=== PATIENT | female | born 1985 | race Caucasian/White ===

== ENCOUNTER 2020-06-28 15:19 | Outpatient (REF) | payer MEDICAID, SELFPAY | END 2020-06-28 15:20 | disposition home or self-care (01) | LOC: HO.LAB 15:19 | PROVIDERS: PCP Student in an Organized Health Care Education/Training Program; Visit Provider Internal Medicine | DX: Z20.828 Contact with and (suspected) exposure to other viral communicable diseases (principal) | CPT/HCPCS: 87635 ==

== ENCOUNTER 2020-07-25 13:12 | Outpatient (REF) | payer MEDICAID, SELFPAY ==
[2020-07-25 15:52] LABS: White Blood Count 7.5 X10*3/uL (4.8-10.8)
[2020-07-25 15:53] LABS: Hemoglobin 10.4 g/dl (12.0-16.0); Mean Corpuscular HGB Conc 28.9 g/dl (31.0-35.0); Mean Corpuscular Volume 76.1 fL (80-98); Mean Platelet Volume 11.7 fL (9.4-12.3); Platelet Count 269 X10*3/uL (160-400); Red Blood Count 4.73 X10*6/uL (4.20-5.50); Red Cell Distribution Width 19.8 % (11.0-16.0)
[2020-07-25 16:06] LABS: PLT ABN DIST 1
[2020-07-25 16:25] LABS: HCG Quantitative < 2 mIU/mL
[2020-07-25 16:43] LABS: Thyroid Stimulating Hormone 0.55 mIU/mL (0.32-4.0)
[2020-07-26 09:20] LABS: CT PCR NOT DETECTED (Not Detect.); NG PCR NOT DETECTED (Not Detect.)
[2020-07-28 03:31] LABS: HPV mRNA E6/E7 rflx Not Detected (Not Detected)
== END 2020-07-25 13:13 | disposition home or self-care (01) ==
LOC: HO.LAB 13:12
PROVIDERS: PCP Student in an Organized Health Care Education/Training Program; Referring Provider Student in an Organized Health Care Education/Training Program; Visit Provider Obstetrics & Gynecology
DX: R10.2 Pelvic and perineal pain (principal); N92.0 Excessive and frequent menstruation with regular cycle
CPT/HCPCS: 36415; 81025; 84443; 84702; 85027; 87491; 87591; 87624; 87625; 88142; 99212

== ENCOUNTER 2020-09-13 14:32 | Outpatient (REF) | payer MEDICAID, SELFPAY | END 2020-09-13 14:33 | disposition home or self-care (01) | LOC: HO.LAB 14:32 | PROVIDERS: Visit Provider Internal Medicine | DX: Z20.828 Contact with and (suspected) exposure to other viral communicable diseases (principal) | CPT/HCPCS: C9803; U0003 ==

== ENCOUNTER 2020-09-26 10:14 | Outpatient (REF) | payer MEDICAID, SELFPAY | END 2020-09-26 10:15 | disposition home or self-care (01) | LOC: HO.LAB 10:14 | PROVIDERS: PCP Student in an Organized Health Care Education/Training Program; Visit Provider Obstetrics & Gynecology | DX: N92.0 Excessive and frequent menstruation with regular cycle (principal) | CPT/HCPCS: 58100; 88305 ==

== ENCOUNTER → 2020-10-10 11:41 | Outpatient (BNVA) | payer MEDICAID, SELFPAY | PROVIDERS: PCP Student in an Organized Health Care Education/Training Program; Visit Provider Obstetrics & Gynecology ==

== ENCOUNTER → 2020-11-28 08:07 | Outpatient (BNV) | payer MEDICAID, SELFPAY | PROVIDERS: PCP Student in an Organized Health Care Education/Training Program; Referring Provider Emergency Medicine; Visit Provider Internal Medicine | DX: D64.9 Anemia, unspecified (principal) | CPT/HCPCS: 99203; 99213; 99214 ==

== ENCOUNTER 2020-12-07 08:02 | Outpatient (REF) | payer MEDICAID, SELFPAY | END 2020-12-07 08:03 | disposition home or self-care (01) | LOC: HO.MDS 08:02 | PROVIDERS: PCP Student in an Organized Health Care Education/Training Program; Visit Provider Internal Medicine | DX: D50.9 Iron deficiency anemia, unspecified (principal) | CPT/HCPCS: 96365; 96366; J1200; J1750; Q0163 ==

== ENCOUNTER 2021-01-17 08:29 | Outpatient (REF) | payer MEDICAID, SELFPAY ==
--- NOTE | ~2021-01-17 | US_ITS ---
EXAMINATION: US RETROPERITONEAL LIMITED (RENAL ONLY) CLINICAL INFORMATION: Abdominal pain. History of kidney stone. COMPARISON: CT abdomen and pelvis 04/13/2019. Renal ultrasound 06/23/2018. Ultrasound abdomen complete 10/24/2016. TECHNIQUE: Real-time imaging of the kidneys. FINDINGS: RIGHT KIDNEY: 11.0 x 4.1 x 4.1 cm (SAG x AP x TRV). The kidney is normal in size, contour, and echogenicity. Renal cortical thickness is normal. No calculi or focal parenchymal lesions. No hydronephrosis. There may be an extrarenal pelvis. LEFT KIDNEY: 11.9 x 4.8 x 4.8 cm (SAG x AP x TRV). The kidney is normal in size, contour, and echogenicity. Renal cortical thickness is normal. No calculi or focal parenchymal lesions. No hydronephrosis. US/US renal BI IMPRESSION: No stone seen.
== END 2021-01-17 08:30 | disposition home or self-care (01) ==
LOC: HO.US 08:29
PROVIDERS: Visit Provider Internal Medicine
DX: R10.9 Unspecified abdominal pain (principal)
CPT/HCPCS: 76775

== ENCOUNTER 2021-02-04 08:59 | Emergency (ER) | payer MEDICAID, SELFPAY ==
--- NOTE | ~2021-02-04 | US_ITS ---
EXAMINATION: US ABDOMEN COMPLETE CLINICAL INFORMATION: Right flank pain. Rule out kidney stone or gallstone. COMPARISON: Previous renal ultrasound, most recent December [address] of the abdomen and pelvis March 2019. TECHNIQUE: Real-time imaging of the abdominal viscera. FINDINGS: PANCREAS: Normal. ABDOMINAL AORTA: The proximal, mid, and distal segments are normal in caliber. INFERIOR VENA CAVA: Visualized portions are normal. LIVER: Normal. The liver is normal in size. The liver contour is normal. Parenchymal echogenicity is normal. No focal hepatic lesion. There is no intrahepatic biliary duct dilatation seen. GALLBLADDER: Normal. The gallbladder is physiologically distended without evidence of stones, sludge, polyps, wall thickening or pericholecystic fluid. COMMON BILE DUCT: Normal in caliber measuring 0.3 cm in diameter. RIGHT KIDNEY: Normal. No hydronephrosis. No renal calculi or focal parenchymal lesions. The kidney measures 10.4 cm in maximum dimension. There is no ascites. US/US abdomen complete IMPRESSION: Normal right upper quadrant ultrasound.
--- NOTE | 2021-02-04 09:26 | ED.ABDPAIN ---
HPI - Abdominal Pain General Chief Complaint: Abdominal Pain Stated Complaint: abd pain Time Seen by Provider: 02/04/21 09:25 Source: patient Mode of arrival: ambulatory Limitations: no limitations History of Present Illness HPI narrative: 36-year-old female came in for evaluation of abdominal pain. Pain started this morning when she woke up from sleep, pain is localized to right upper quadrant area/epigastric area, radiates to the back and radiate down to upper right thigh, pain described as constant, dull aching pain severe 7/10, associated with nausea but no vomiting or fever. Nothing makes the pain worse or better, patient need seafood last night she do not think it is because the food. Never had this pain in the past, patient never had abdominal surgeries, last bowel movement was yesterday and was normal. No dysuria or urinary frequency, no fever or chills. Related Data Home Medications Medication Instructions Recorded Confirmed acetaminophen 1 tab PO Q8H PRN 11/28/20 11/28/20 albuterol sulfate [ProAir HFA] 2 puff PO Q4-6H PRN 11/28/20 11/28/20 [id number]-gkyeexlwyaztf-mgrx 1 cap PO NEEDED PRN 11/28/20 11/28/20 Previous Rx's Medication Instructions Recorded meclizine 25 mg PO TID PRN #30 tab 12/14/20 Allergies Allergy/AdvReac Type Severity Reaction Status Date / Time No Known Allergies Allergy Verified 11/28/20 08:27 Review of Systems Review of Systems All other systems are reviewed and are negative Constitutional: Reports as per HPI and Reports no additional constitutional complaints Eyes: Reports as per HPI and Reports no additional eye complaints Reports system reviewed and no additional complaints, except as documented Cardiovascular: Reports as per HPI and Reports no additional cardiovascular complaints Respiratory: Reports as per HPI and Reports no additional respiratory complaints Gastrointestinal: Reports as per HPI and Reports no additional gastrointestinal complaints Genitourinary: Reports no additional female genitourinary complaints Musculoskeletal: Reports no additional musculoskeletal complaints Skin/Breast: Reports system reviewed and no additional complaints, except as docu Psychiatric: Reports no additional psychiatric complaints Endocrine: Reports no additional endocrine complaints Hematologic/Lymphatic: Reports no additional hematologic/lymphatic complaints Allergic/Immunologic: Reports no additional allergic/immunologic complaints Reports system reviewed and no additional complaints, except as documented and Reports Abnormal speech present Physical Exam Vital Signs: Vital Signs: Last Vital Signs Temp 98.5 F 02/04/21 09:28 Pulse 65 02/04/21 09:28 Resp 18 02/04/21 09:28 BP 115/72 02/04/21 09:28 Pulse Ox 97 02/04/21 09:28 Body Mass Index 28.9 Vital signs have been reviewed as appeared to be correct. Blood pressure normal. Heart rate normal. Respiration rate normal. Temperature normal. Oxygen saturation normal. Appearance: Alert. Oriented X3. No acute distress. Head: Normal external exam. Normocephalic. Atraumatic. No Aburto signs noted. No raccoon eyes noted Eyes: PERRLA. EOMI. Conjunctiva and sclera normal. Eyelids normal. ENT: TM's Normal. Pharynx normal. Uvula midline. Moist mucous membranes. No trismus noted. No drooling noted. No muffled voice noted. Neck: Normal inspection. Neck supple. FROM. No adenopathy. Thyroid Normal. No meningeal signs. No neck mass noted. CVS: Normal heart rate and rhythm. Heart sound normal. No murmurs noted. Pulses normal throughout. Respiratory: No respiratory distress. Painless inspiration. Breath sounds normal. No wheezes/rales/rhonchi noted. Chest nontender. No accessory muscle usage noted or decreased air movement noted. Abdomen: Soft, right upper quadrant tenderness, epigastric tenderness, no rebound tenderness, no guarding.. Bowel sounds normal in all 4 quadrants. No distention noted. No organomegaly noted. No visible injury noted. Back: Right CVA tenderness. Full range of motion noted. Skin: Skin warm and dry. Normal skin color. Normal skin turgor. No rashes/lesions/lacerations noted. Extremities: No lower extremity edema. Extremities exhibit normal range of motion. Extremities nontender. Neuro: Oriented X 3. No motor deficit. No sensory deficit. Reflexes normal. Course Course Course Narrative: Assessment and plan. Right upper abdominal pain radiates down to the right flank area and radiates down to the right upper thigh. Patient feels better pain is further, patient has no nausea or vomiting now, LFTs baseline elevated to days is more elevated, as discussed with the patient will center to a litigation claim representative for further outpatient evaluation. Patient was instructed to return to the emergency department of pain is getting worse or developing any other symptoms, early appendicitis was discussed with the patient however I felt it extremely unlikely to be what is causing patient's symptoms. MDM - Abdominal Pain Lab Data Attestation: I reviewed the patient's lab results. Result diagrams: 02/04/21 09:43 02/04/21 09:43 Labs: Lab Results 02/04/21 02/04/21 02/04/21 Range/Units 09:43 09:43 09:43 WBC 6.2 (4.8-10.8) X10*3/uL RBC 5.05 (4.20-5.50) X10*6/uL Hgb 13.1 (12.0-16.0) g/dl Hct 43.0 (37-47) % MCV 85.1 (80-98) fL MCH 25.9 L (27.0-33.0) pg MCHC 30.5 L (31.0-35.0) g/dl RDW 18.5 H (11.0-16.0) % Plt Count 207 (160-400) X10*3/uL MPV 10.0 (9.4-12.3) fL Immature Gran % (Auto) 0.3 (0.0-0.4) % Neut % (Auto) 63.2 (45-73) % Lymph % (Auto) 25.2 (20-40) % Rabun % (Auto) 9.6 (2-11) % Eos % (Auto) 1.1 (0-4) % Baso % (Auto) 0.6 (0-2) % Lymph # (Auto) 1.6 (1.2-4.9) X10*3/uL Rabun # (Auto) 0.6 (0.1-1.2) X10*3/uL Eos # (Auto) 0.1 (0.0-0.4) X10*3/uL Baso # (Auto) 0.0 (0.0-0.2) X10*3/uL Abs Immat Gran (auto) 0.02 (0.00-0.03) X10*3/uL Absolute Neuts (auto) 3.9 (2.0-8.3) X10*3/uL Absolute Nucleated RBC 0.000 (0.0-0.012) X10*3/uL Nucleated RBC % (auto) 0.0 (0.0-0.2) /100WBC Sodium 138 (135-145) mmol/L Potassium 3.9 (3.3-5.1) mmol/L Chloride 102 (96-108) mmol/L Carbon Dioxide 29 (22-29) mmol/L Anion Gap 11 L (12-20) BUN 10 (9-16) mg/dL Creatinine 0.73 (0.5-1.4) mg/dL Estim Creat Clear Calc 98.8 Estimated GFR > 60 Random Glucose 94 (60-115) mg/dL Calcium 8.9 (8.4-10.2) mg/dL Total Bilirubin 0.4 (0.0-1.0) mg/dL Direct Bilirubin 0.2 (0.0-0.5) mg/dL AST 126 H (5-31) U/L ALT 256 H (0-31) U/L Alkaline Phosphatase 90 (39-117) U/L Total Protein 7.2 (6.5-8.0) g/dL Albumin 4.0 (3.5-5.0) g/dL Lipase 22 (8-78) U/L Urine Color YELLOW Urine Appearance CLEAR Urine pH 6.5 (5.0-8.0) Ur Specific Sterling 1.020 (1.005-1.025) Urine Protein NEG (NEG-TRACE) MG/DL Urine Glucose (UA) NEG (NEG) MG/DL Urine Ketones NEG (NEG) MG/DL Urine Blood NEG (NEG) Urine Nitrite NEG (NEG) Ur Leukocyte Esterase NEG (NEG) Urine Test (NEGATIVE) 02/04/21 Range/Units 09:43 WBC (4.8-10.8) X10*3/uL RBC (4.20-5.50) X10*6/uL Hgb (12.0-16.0) g/dl Hct (37-47) % MCV (80-98) fL MCH (27.0-33.0) pg MCHC (31.0-35.0) g/dl RDW (11.0-16.0) % Plt Count (160-400) X10*3/uL MPV (9.4-12.3) fL Immature Gran % (Auto) (0.0-0.4) % Neut % (Auto) (45-73) % Lymph % (Auto) (20-40) % Rabun % (Auto) (2-11) % Eos % (Auto) (0-4) % Baso % (Auto) (0-2) % Lymph # (Auto) (1.2-4.9) X10*3/uL Rabun # (Auto) (0.1-1.2) X10*3/uL Eos # (Auto) (0.0-0.4) X10*3/uL Baso # (Auto) (0.0-0.2) X10*3/uL Abs Immat Gran (auto) (0.00-0.03) X10*3/uL Absolute Neuts (auto) (2.0-8.3) X10*3/uL Absolute Nucleated RBC (0.0-0.012) X10*3/uL Nucleated RBC % (auto) (0.0-0.2) /100WBC Sodium (135-145) mmol/L Potassium (3.3-5.1) mmol/L Chloride (96-108) mmol/L Carbon Dioxide (22-29) mmol/L Anion Gap (12-20) BUN (9-16) mg/dL Creatinine (0.5-1.4) mg/dL Estim Creat Clear Calc Estimated GFR Random Glucose (60-115) mg/dL Calcium (8.4-10.2) mg/dL Total Bilirubin (0.0-1.0) mg/dL Direct Bilirubin (0.0-0.5) mg/dL AST (5-31) U/L ALT (0-31) U/L Alkaline Phosphatase (39-117) U/L Total Protein (6.5-8.0) g/dL Albumin (3.5-5.0) g/dL Lipase (8-78) U/L Urine Color Urine Appearance Urine pH (5.0-8.0) Ur Specific Sterling (1.005-1.025) Urine Protein (NEG-TRACE) MG/DL Urine Glucose (UA) (NEG) MG/DL Urine Ketones (NEG) MG/DL Urine Blood (NEG) Urine Nitrite (NEG) Ur Leukocyte Esterase (NEG) Urine Test NEGATIVE (NEGATIVE) Imaging Data US - abdomen: Radiologist's impression: Normal right upper quadrant ultrasound. Discharge Plan Discharge Clinical Impression: Elevated liver function tests Abdominal pain Qualifiers: Abdominal location: right upper quadrant Qualified Code(s): R10.11 - Right upper quadrant pain Patient Disposition: Home, Self-Care Instructions: Abdominal Pain (ED) Prescriptions: No Action wxfudvxugo-zsrgjtgldzvfw-sjjm 50-325-40 mg capsule 1 cap PO NEEDED PRN (Reason: Headache) RF: 0 acetaminophen 500 mg tablet 1 tab PO Q8H PRN (Reason: Pain) RF: 0 albuterol sulfate [ProAir HFA] 90 mcg/actuation HFA aerosol inhaler 2 puff PO Q4-6H PRN (Reason: Shortness Of Breath Or Wheezing) RF: 0 meclizine 25 mg Tablet 25 mg PO TID PRN (Reason: Dizziness Or Vertigo) Qty: 30 RF: 3 Referrals: Doris Stacy MD [Physician] - 2 days Jo Higuera MD [Primary Care Provider] - 2 days [facility] Past Medical History Medical History Anemia Asthma Migraines Surgical History History of carpal tunnel surgery of right wrist History of tubal ligation Family History Family History Unknown No problems noted. Mother HTN (hypertension) Maternal Aunt Diabetes Mother Murmur Asthma Migraines Social History Social History Alcohol intake: current Alcohol intake frequency: holidays/special occasions only Smoking Status: Never smoker Use of substances other than those prescribed or required for medical reasons: No Advance Directives: No Advance Directives Information Provided: No Sexual orientation: Straight/Heterosexual Gender identity: female
[2021-02-04 09:28] VITALS: BP 115/72; PULSE 65; RESP 18; TEMP 36.9; O2SAT 97; BMI 28.9
[2021-02-04] MEDS: 0.9 % Sodium Chloride 1,000 ML 999 ML IVCONT (09:43)
[2021-02-04 09:52] LABS: MANUAL DIFF FLAG NO
[2021-02-04 09:56] LABS: Basophils Percent Auto 0.6 % (0-2); Eosinophils Absolute Auto 0.1 X10*3/uL (0.0-0.4); Eosinophils Percent Auto 1.1 % (0-4); Hemoglobin 13.1 g/dl (12.0-16.0); Imm Gran Abs Auto 0.02 X10*3/uL (0.00-0.03); Imm Gran Pct Auto 0.3 % (0.0-0.4); Lymphocytes Absolute Auto 1.6 X10*3/uL (1.2-4.9); Lymphocytes Percent Auto 25.2 % (20-40); Mean Corpuscular HGB Conc 30.5 g/dl (31.0-35.0); Mean Corpuscular Hemoglobin 25.9 pg (27.0-33.0); Mean Corpuscular Volume 85.1 fL (80-98); Monocytes Absolute Auto 0.6 X10*3/uL (0.1-1.2); Monocytes Percent Auto 9.6 % (2-11); Neutrophils Absolute Auto 3.9 X10*3/uL (2.0-8.3); Neutrophils Percent Auto 63.2 % (45-73); Platelet Count 207 X10*3/uL (160-400); Red Blood Count 5.05 X10*6/uL (4.20-5.50); Red Cell Distribution Width 18.5 % (11.0-16.0); White Blood Count 6.2 X10*3/uL (4.8-10.8)
[2021-02-04 10:00] LABS: Glucose Urine UA NEG (NEG); Leukocyte Esterase Urine NEG (NEG); Nitrite Urine NEG (NEG); PH 6.5 (5.0-8.0); Urine Blood NEG (NEG); Urine Ketones NEG (NEG); Urine Protein NEG (NEG-TRACE)
[2021-02-04 10:02] LABS: Appearance Urine CLEAR; Color Urine YELLOW
[2021-02-04 10:07] LABS: UPreg QC Valid YES; Urine Pregnancy NEGATIVE (NEGATIVE)
[2021-02-04 10:38] LABS: Alanine Aminotransferase 256 U/L (0-31); Alkaline Phosphatase 90 U/L (39-117); Anion Gap 11 (12-20); Aspartate Amino Transferase 126 U/L (5-31); Bilirubin Direct 0.2 mg/dL (0.0-0.5); Bilirubin Total 0.4 mg/dL (0.0-1.0); Blood Urea Nitrogen 10 mg/dL (9-16); Calcium 8.9 mg/dL (8.4-10.2); Carbon Dioxide 29 mmol/L (22-29); Chloride 102 mmol/L (96-108); Creatinine Clr Calc Pharmacy 98.8; Estimated Glomerular Filt Rate > 60; Glucose Random 94 mg/dL (60-115); Lipase 22 U/L (8-78); Potassium 3.9 mmol/L (3.3-5.1); Sodium 138 mmol/L (135-145); Total Protein 7.2 g/dL (6.5-8.0)
== END 2021-02-04 13:11 | disposition home or self-care (01) ==
PROVIDERS: Emergency Provider Emergency Medicine; PCP Student in an Organized Health Care Education/Training Program
DX: R10.11 Right upper quadrant pain (principal); R79.89 Other specified abnormal findings of blood chemistry; I10 Essential (primary) hypertension; Z79.899 Other long term (current) drug therapy
CPT/HCPCS: 36415; 76700; 80048; 80076; 81003; 81025; 83690; 85025; 99284

== ENCOUNTER 2021-04-18 16:11 | Emergency (ER) | payer MEDICAID, SELFPAY ==
--- NOTE | 2021-04-18 | ECG_ITS ---
Test Reason : CHEST PAIN Blood Pressure : / mmHG Vent. Rate : 069 BPM Atrial Rate : 069 BPM P-R Int : 122 ms QRS Dur : 086 ms QT Int : 414 ms P-R-T Axes : 005 077 033 degrees QTc Int : 443 ms Normal sinus rhythm Normal ECG When compared with ECG of 21-JUL-2012 09:30, No significant change was found Referred By: Generic ED Physician Electronically Signed By:ZOHAIB RUTH
[2021-04-18 16:20] VITALS: BP 119/73; PULSE 66; RESP 18; TEMP 36.6; O2SAT 99; BMI 30.3
[2021-04-18 16:49] LABS: MANUAL DIFF FLAG NO
[2021-04-18 16:51] LABS: Basophils Absolute Auto 0.1 X10*3/uL (0.0-0.2); Basophils Percent Auto 0.7 % (0-2); Eosinophils Absolute Auto 0.1 X10*3/uL (0.0-0.4); Eosinophils Percent Auto 1.3 % (0-4); Hematocrit 41.3 % (37-47); Hemoglobin 13.4 g/dl (12.0-16.0); Imm Gran Abs Auto 0.02 X10*3/uL (0.00-0.03); Imm Gran Pct Auto 0.3 % (0.0-0.4); Lymphocytes Absolute Auto 1.8 X10*3/uL (1.2-4.9); Lymphocytes Percent Auto 26.6 % (20-40); Mean Corpuscular HGB Conc 32.4 g/dl (31.0-35.0); Mean Corpuscular Hemoglobin 28.6 pg (27.0-33.0); Mean Corpuscular Volume 88.1 fL (80-98); Mean Platelet Volume 10.2 fL (9.4-12.3); Monocytes Absolute Auto 0.6 X10*3/uL (0.1-1.2); Monocytes Percent Auto 8.3 % (2-11); Neutrophils Absolute Auto 4.3 X10*3/uL (2.0-8.3); Neutrophils Percent Auto 62.8 % (45-73); Platelet Count 179 X10*3/uL (160-400); Red Blood Count 4.69 X10*6/uL (4.20-5.50); Red Cell Distribution Width 13.2 % (11.0-16.0); White Blood Count 6.9 X10*3/uL (4.8-10.8)
[2021-04-18 17:12] LABS: Anion Gap 12 (12-20); Blood Urea Nitrogen 12 mg/dL (9-16); Calcium 9.4 mg/dL (8.4-10.2); Carbon Dioxide 28 mmol/L (22-29); Chloride 105 mmol/L (96-108); Creatinine Clr Calc Pharmacy 87.9; Estimated Glomerular Filt Rate > 60; Glucose Random 96 mg/dL (60-115); Potassium 3.9 mmol/L (3.3-5.1); Sodium 141 mmol/L (135-145)
[2021-04-18 17:19] LABS: Troponin-I High Sensitivity < 3.5 ng/L (<3.5-17.0)
--- NOTE | 2021-04-18 18:28 | ED_ITS ---
HPI - General Adult General Chief complaint: General Medical Stated complaint: chest pain sob Time Seen by Provider: 04/18/21 18:28 Source: patient Mode of arrival: ambulatory Limitations: no limitations History of Present Illness HPI narrative: Patient with no significant past medical history except for mild asthma been complaining of left chest pain for last 2 days which is localized mostly on the 2nd costal cartilage area which increases on movement of the left arm and palpation feels sharp pressure no shortness of breath no cough no fever no chills no injury no use of any cocaine no history of sudden cardiac in young age in the family Related Data Home Medications Medication Instructions Recorded Confirmed acetaminophen 500 mg tablet 1 tab PO Q8H PRN 11/28/20 11/28/20 albuterol sulfate 90 mcg/actuation 2 puff PO Q4-6H PRN 11/28/20 11/28/20 aerosol inhaler (ProAir HFA) equsgyniug-cnsaaabekfcra-nsvnmhmi 1 cap PO NEEDED PRN 11/28/20 11/28/20 50 mg-325 mg-40 mg capsule Previous Rx's Medication Instructions Recorded meclizine 25 mg tablet 25 mg PO TID PRN #30 tab 12/14/20 ibuprofen 600 mg tablet 600 mg PO Q6H PRN #20 tab 04/18/21 Allergies Allergy/AdvReac Type Severity Reaction Status Date / Time No Known Allergies Allergy Verified 11/28/20 08:27 Review of Systems Review of Systems: Constitutional : No Weight loss, No Fever, No Chills ENT/Mouth : No sore throat, No Rhinorrhea Eyes: No Eye Pain, No Swelling Cardiovascular : +Chest Pain, no palpitations Respiratory : No Cough, No Sputum, no shortness of breath Gastrointestinal : no Nausea, No Vomiting, No Diarrhea, No abdominal Pain, no black stools Genitourinary : No Dysuria, No Urinary Frequency Musculoskeletal : No joint pain, No Myalgias, No Joint Swelling Skin : No Skin Lesions, No rash Neuro : No Weakness, No Numbness, No Dizziness, No Headache Psych : No Anxiety/Panic, No Depression Heme/Lymph: No Bruising, No Lymphadenopathy Endocrine : No Polyuria, No Polydipsia All other systems reviewed and are negative [facility] Past Medical History Medical History Anemia Asthma Migraines Surgical History History of carpal tunnel surgery of right wrist History of tubal ligation Family History Family History Unknown No problems noted. Mother HTN (hypertension) Maternal Aunt Diabetes Mother Murmur Asthma Migraines Social History Social History Alcohol intake: current Alcohol intake frequency: holidays/special occasions only Advance Directives: No Advance Directives Information Provided: No Patient : No Sexual orientation: Straight/Heterosexual Gender identity: female Physical Exam Vital Signs: Vital Signs: Last Vital Signs Temp 98 F 04/18/21 16:20 Pulse 59 04/18/21 18:31 Resp 18 04/18/21 18:31 BP 114/83 04/18/21 18:31 Pulse Ox 99 04/18/21 18:31 Body Mass Index 30.3 Appearance: Alert. Oriented X3. No acute distress. Eyes: PERRLA, No Nystagmus ENT: Pharynx normal. Oral Mucosa moist Neck: Normal inspection. Neck supple. CVS: Normal heart rate and rhythm. Pulses normal. Tender to palpation to left 2nd intercostal space Respiratory: No respiratory distress. Equal air entry bilateral, no wheezing/rales/rhonchi Abdomen: Soft and nontender. Bowel sounds are present, no mass palpable, no CVA tenderness Skin: Skin warm and dry. Normal skin color. Normal skin turgor. Extremities: No lower extremity edema. No calf tenderness Neuro: Oriented X 3. No motor deficit. No sensory deficit.No cerebellar signs , cranial nerves II-XII intact Medical Decision Making MDM Narrative Medical decision making narrative: Patient with atypical chest pain without any significant coronary risk factors EKG normal high sensitive troponin negative will discharge patient home on ibuprofen Lab Data Result diagrams: 04/18/21 16:43 04/18/21 16:43 Labs: Lab Results 04/18/21 04/18/21 04/18/21 Range/Units 16:43 16:43 16:43 WBC 6.9 (4.8-10.8) X10*3/uL RBC 4.69 (4.20-5.50) X10*6/uL Hgb 13.4 (12.0-16.0) g/dl Hct 41.3 (37-47) % MCV 88.1 (80-98) fL MCH 28.6 (27.0-33.0) pg MCHC 32.4 (31.0-35.0) g/dl RDW 13.2 (11.0-16.0) % Plt Count 179 (160-400) X10*3/uL MPV 10.2 (9.4-12.3) fL Immature Gran % (Auto) 0.3 (0.0-0.4) % Neut % (Auto) 62.8 (45-73) % Lymph % (Auto) 26.6 (20-40) % Ida % (Auto) 8.3 (2-11) % Eos % (Auto) 1.3 (0-4) % Baso % (Auto) 0.7 (0-2) % Lymph # (Auto) 1.8 (1.2-4.9) X10*3/uL Ida # (Auto) 0.6 (0.1-1.2) X10*3/uL Eos # (Auto) 0.1 (0.0-0.4) X10*3/uL Baso # (Auto) 0.1 (0.0-0.2) X10*3/uL Abs Immat Gran (auto) 0.02 (0.00-0.03) X10*3/uL Absolute Neuts (auto) 4.3 (2.0-8.3) X10*3/uL Absolute Nucleated RBC 0.000 (0.0-0.012) X10*3/uL Nucleated RBC % (auto) 0.0 (0.0-0.2) /100WBC Sodium 141 (135-145) mmol/L Potassium 3.9 (3.3-5.1) mmol/L Chloride 105 (96-108) mmol/L Carbon Dioxide 28 (22-29) mmol/L Anion Gap 12 (12-20) BUN 12 (9-16) mg/dL Creatinine 0.84 (0.5-1.4) mg/dL Estim Creat Clear Calc 87.9 Estimated GFR > 60 Random Glucose 96 (60-115) mg/dL Calcium 9.4 (8.4-10.2) mg/dL Troponin I High Sens < 3.5 (<3.5-17.0) ng/L ECG Data Attestation: I personally reviewed and interpreted this ECG as follows: Interpretation: Normal sinus rhythm heart rate 69 beats per minute normal intervals normal axis no acute ST wave changes impression normal EKG Scores Heart Score History: -0- slightly suspicious ECG: -0- normal Age: -0- < or = 45 Risk factory: -0- no risk factors known Troponin: -0- < or = normal limit Score: 0 Risk: 1.7% Discharge Plan Discharge Clinical Impression: Acute costochondritis Patient Disposition: Home, Self-Care Instructions: Costochondritis (ED) Additional Instructions: Rest as advised Ibuprofen for pain Prescriptions: New ibuprofen 600 mg tablet 600 mg PO Q6H PRN (Reason: pain) Qty: 20 RF: 0 No Action xmuvdfelgq-fvbnqlzxnpiut-zjds 50-325-40 mg capsule 1 cap PO NEEDED PRN (Reason: Headache) RF: 0 acetaminophen 500 mg tablet 1 tab PO Q8H PRN (Reason: Pain) RF: 0 albuterol sulfate [ProAir HFA] 90 mcg/actuation HFA aerosol inhaler 2 puff PO Q4-6H PRN (Reason: Shortness Of Breath Or Wheezing) RF: 0 meclizine 25 mg Tablet 25 mg PO TID PRN (Reason: Dizziness Or Vertigo) Qty: 30 RF: 3 Interventions: ED Discharge Assessment Last Done: 04/18/21 18:49
[2021-04-18 18:31] VITALS: BP 114/83; PULSE 59; RESP 18; O2SAT 99
[2021-04-18] MEDS: Ibuprofen 600 MG TABLET PO (18:45)
== END 2021-04-18 18:49 | disposition home or self-care (01) ==
LOC: HO.ED 18:41
PROVIDERS: Emergency Provider Internal Medicine; PCP Student in an Organized Health Care Education/Training Program
DX: M94.0 Chondrocostal junction syndrome [Tietze] (principal); R07.9 Chest pain, unspecified; Z79.899 Other long term (current) drug therapy
CPT/HCPCS: 36415; 80048; 84484; 85025; 93005; 99284

== ENCOUNTER 2021-07-16 09:00 | Outpatient (RCR) | payer MEDICAID, SELFPAY | END 2021-08-08 14:00 | disposition home or self-care (01) | LOC: HO.PTCHIC 09:00 | PROVIDERS: PCP Student in an Organized Health Care Education/Training Program; Visit Provider Family Medicine | DX: M25.561 Pain in right knee (principal) | CPT/HCPCS: 97014; 97110; 97140; 97161 ==

== ENCOUNTER → 2021-07-18 11:44 | Outpatient (BNVA) | payer MEDICAID, SELFPAY | PROVIDERS: Visit Provider Obstetrics & Gynecology | DX: D21.9 Benign neoplasm of connective and other soft tissue, unspecified (principal); N92.0 Excessive and frequent menstruation with regular cycle | CPT/HCPCS: 99212 ==

== ENCOUNTER 2021-07-30 13:55 | Outpatient (REF) | payer MEDICAID, SELFPAY ==
[2021-08-08 05:11] LABS: HPV 16 RNA NOT DETECTED (NOT DETECTED); HPV mRNA E6/E7 rflx Detected (Not Detected)
== END 2021-07-30 13:56 | disposition home or self-care (01) ==
LOC: HO.LAB 13:55
PROVIDERS: Visit Provider Obstetrics & Gynecology
DX: Z01.419 Encounter for gynecological examination (general) (routine) without abnormal findings (principal)
CPT/HCPCS: 87624; 87625; 88142

== ENCOUNTER 2021-08-13 09:58 | Outpatient (REF) | payer MEDICAID, SELFPAY ==
--- NOTE | ~2021-08-13 | US_ITS ---
EXAMINATION: US PELVIS CLINICAL INFORMATION: Abnormal uterine and vaginal bleeding. COMPARISON: None TECHNIQUE: Ultrasound of the pelvis is performed using both transabdominal and transvaginal transducers along with Doppler. Transvaginal imaging is performed due to inadequate visualization transabdominally. FINDINGS: The uterus is anteverted, anteflexed measuring 8.1 cm in length, 4.2 cm in AP and 4.9 cm wide. There 2 hypoechoic areas suggestive of fibroid. The larger posterior mid body fibroid measures 2.2 x 1.6 x 1.9 cm. Previously this lesion measured 1.3 x 1.1 x 1.5 cm. The smaller anterior upper body lesion measures 1.1 x 0.9 x 0.9 cm. It was not seen previously. Endometrial thickness is 1.1 cm. There are small nabothian cysts seen in the cervix. Right ovary measures 2.9 x 1.6 x 2.7 cm and volume 6.8 mL. Previously it measured 3.0 x 1.4 x 2.3 cm. Left ovary measures 2.7 x 2.3 x 2.2 cm and volume 7.3 mL. Previously it measures 4.6 x 2.8 x 3.7 cm. US/US pelvic and transvaginal IMPRESSION: 2 uterine fibroids. The larger fibroid has slightly increased in size which lies along the posterior mid uterus. Small nabothian cysts in the cervix. Unremarkable ovaries.
== END 2021-08-13 09:59 | disposition home or self-care (01) ==
LOC: HO.HMGCX 09:58
PROVIDERS: Visit Provider Obstetrics & Gynecology
DX: D21.9 Benign neoplasm of connective and other soft tissue, unspecified (principal); N39.3 Stress incontinence (female) (male)
CPT/HCPCS: 76830; 76856

== ENCOUNTER → 2021-08-14 14:58 | Outpatient (BNVA) | payer MEDICAID, SELFPAY | PROVIDERS: Visit Provider Obstetrics & Gynecology ==

== ENCOUNTER 2021-10-09 12:01 | Outpatient (REF) | payer MEDICAID, SELFPAY ==
[2021-10-09 12:19] LABS: COVID-19 Test Positive (Negative)
== END 2021-10-09 12:02 | disposition home or self-care (01) ==
LOC: HO.LAB 12:01
PROVIDERS: Visit Provider Internal Medicine
DX: Z20.822 Contact with and (suspected) exposure to COVID-19 (principal)
CPT/HCPCS: 87635; C9803

== ENCOUNTER 2021-10-14 14:01 | Outpatient (REF) | payer MEDICAID, SELFPAY ==
[2021-10-14 14:30] LABS: Binax Internal Control QC Valid; Binax Now Covid-19 Ag Negative (Negative)
== END 2021-10-14 14:02 | disposition home or self-care (01) ==
LOC: HO.LAB 14:01
PROVIDERS: Visit Provider Internal Medicine
DX: Z20.822 Contact with and (suspected) exposure to COVID-19 (principal)
CPT/HCPCS: C9803

== ENCOUNTER → 2021-10-16 10:12 | Outpatient (BNVA) | payer MEDICAID, SELFPAY | PROVIDERS: PCP Student in an Organized Health Care Education/Training Program; Visit Provider Obstetrics & Gynecology ==

== ENCOUNTER 2021-10-21 10:51 | Outpatient (REF) | payer MEDICAID, SELFPAY | END 2021-10-21 10:52 | disposition home or self-care (01) | LOC: HO.LAB 10:51 | PROVIDERS: Visit Provider Obstetrics & Gynecology | DX: R87.610 Atypical squamous cells of undetermined significance on cytologic smear of cervix (ASC-US) (principal); R87.810 Cervical high risk human papillomavirus (HPV) DNA test positive; Z87.891 Personal history of nicotine dependence | CPT/HCPCS: 57454; 88305 ==

== ENCOUNTER 2021-10-31 10:27 | Outpatient (REF) | payer MEDICAID, SELFPAY ==
[2021-10-31 11:15] LABS: COVID-19 Test Negative (Negative)
== END 2021-10-31 10:28 | disposition home or self-care (01) ==
LOC: HO.LAB 10:27
PROVIDERS: Visit Provider Internal Medicine
DX: Z20.822 Contact with and (suspected) exposure to COVID-19 (principal)
CPT/HCPCS: 87635; C9803

== ENCOUNTER → 2021-11-04 15:43 | Outpatient (BNVA) | payer MEDICAID, SELFPAY | PROVIDERS: Visit Provider Obstetrics & Gynecology ==

== ENCOUNTER 2021-12-17 10:00 | Outpatient (RCR) | payer MEDICAID, SELFPAY | END 2021-12-17 12:52 | disposition home or self-care (01) | LOC: HO.PTCHIC 10:00 | PROVIDERS: PCP Student in an Organized Health Care Education/Training Program; Visit Provider Orthopaedic Surgery | DX: Z98.890 Other specified postprocedural states (principal) | CPT/HCPCS: 97035; 97110; 97112; 97116; 97140; 97161; 97164; 97530 ==

== ENCOUNTER 2022-03-12 09:49 | Emergency (ER) | payer MEDICAID, SELFPAY ==
--- NOTE | ~2022-03-12 | US_ITS ---
EXAMINATION: US RETROPERITONEAL LIMITED (RENAL ONLY) CLINICAL INFORMATION: Right flank pain.. COMPARISON: 02/04/2021 TECHNIQUE: Real-time imaging of the kidneys. FINDINGS: RIGHT KIDNEY: 9.8 x 4.2 x 4.1 cm (SAG x AP x TRV). The kidney is normal in size, contour, and echogenicity. Renal cortical thickness is normal. No calculi or focal parenchymal lesions. No hydronephrosis. LEFT KIDNEY: 10.7 x 4.7 x 5.0 cm (SAG x AP x TRV). The kidney is normal in size, contour, and echogenicity. Renal cortical thickness is normal. No calculi or focal parenchymal lesions. No hydronephrosis. US/US retroperitoneal limited IMPRESSION: Unremarkable renal ultrasound.
[2022-03-12 10:07] VITALS: BP 123/60; PULSE 65; RESP 16; TEMP 36.7; O2SAT 99; BMI 32.9
[2022-03-12 10:20] LABS: MANUAL DIFF FLAG NO
[2022-03-12 10:22] LABS: Basophils Percent Auto 0.7 % (0-2); Eosinophils Absolute Auto 0.1 X10*3/uL (0.0-0.4); Eosinophils Percent Auto 0.9 % (0-4); Hematocrit 42.4 % (37.0-47.0); Hemoglobin 13.3 g/dl (12.0-16.0); Imm Gran Abs Auto 0.02 X10*3/uL (0.00-0.03); Imm Gran Pct Auto 0.3 % (0.0-0.4); Lymphocytes Absolute Auto 1.8 X10*3/uL (1.2-4.9); Lymphocytes Percent Auto 31.1 % (20-40); Mean Corpuscular HGB Conc 31.4 g/dl (31.0-35.0); Mean Corpuscular Hemoglobin 27.1 pg (27.0-33.0); Mean Corpuscular Volume 86.5 fL (80.0-98.0); Mean Platelet Volume 10.3 fL (9.4-12.3); Monocytes Absolute Auto 0.5 X10*3/uL (0.1-1.2); Monocytes Percent Auto 8.5 % (2-11); Neutrophils Absolute Auto 3.4 x10*3/uL (2.0-8.3); Neutrophils Percent Auto 58.5 % (45-73); Platelet Count 190 X10*3/uL (160-400); Red Cell Distribution Width 12.7 % (11.0-16.0); White Blood Count 5.9 X10*3/uL (4.8-10.8)
--- NOTE | 2022-03-12 10:27 | ED.FEMALEGU ---
HPI - Female Genitourinary General Chief complaint: Back Pain/Injury Stated complaint: Kidney Pain Sent by [facility] Time Seen by Provider: 03/12/22 10:27 Source: patient Mode of arrival: ambulatory Limitations: no limitations History of Present Illness HPI Narrative: atraumatic R flank pain no associated or GI symptoms hurts to touch lower back radiates around groin as well MD elicited complaint: other (R flank pain) Pertinent past history: other (UTI) Onset (ago): week(s) (1) Location of symptoms: flank (right) Severity: moderate Quality of pain: aching Consistency: intermittent Exacerbating factors: movement Relieving factors: none Associated symptoms: denies other symptoms Treatment prior to arrival: other (has been on macrobid since 03/06 with PCP for possible UTI) Related Data Home Medications Medication Instructions Recorded Confirmed acetaminophen 500 mg tablet 1 tab PO Q8H PRN Pain 11/28/20 02/19/22 albuterol sulfate 90 mcg/actuation 2 puff PO Q4-6H PRN Shortness Of 11/28/20 02/19/22 aerosol inhaler (ProAir HFA) Breath Or Wheezing wxzyjgpwwo-uexsndvpwipum-yshloocw 1 cap PO NEEDED PRN Headache 11/28/20 02/19/22 50 mg-325 mg-40 mg capsule simvastatin 10 mg tablet 1 tab PO QPM 05/07/21 02/19/22 ondansetron HCl 4 mg tablet 1 tab PO BID PRN nausea 02/19/22 02/19/22 Previous Rx's Medication Instructions Recorded meclizine 25 mg tablet 25 mg PO TID PRN Dizziness Or 12/14/20 Vertigo #30 tabs ibuprofen 600 mg tablet 600 mg PO Q6H PRN pain #20 tabs 04/18/21 tranexamic acid 650 mg tablet 1,300 mg PO TID 5 days #30 tabs 07/18/21 (Lysteda) levofloxacin 500 mg tablet 500 mg PO DAILY 7 days #7 tabs 10/23/21 cyclobenzaprine 10 mg tablet 10 mg PO TID PRN muscle spasm #14 03/12/22 tabs ibuprofen 600 mg tablet 600 mg PO Q6H PRN pain #30 tabs 03/12/22 lidocaine 4 % topical patch 1 patch topical DAILY PRN pain #10 03/12/22 ea Allergies Allergy/AdvReac Type Severity Reaction Status Date / Time No Known Allergies Allergy Verified 02/19/22 10:08 Review of Systems Review of Systems: Constitutional : No Fever, No Chills ENT/Mouth : No sore throat Eyes: No Eye Pain, No Swelling, No Redness Cardiovascular : No Chest Pain, No SOB Respiratory : No Cough, No Sputum, No Wheezing Gastrointestinal : no Nausea, no Vomiting, No Diarrhea, no abdominal pain Genitourinary : no Dysuria, no urinary frequency, no Hematuria, positive Flank Pain, no hesitancy Musculoskeletal : No joint pain, No Myalgias Skin : No Skin Lesions, No rash Neuro : No Weakness, No Numbness, No Headache Psych : No Anxiety/Panic, No Depression Heme/Lymph: No Bruising, No Lymphadenopathy Endocrine : No Polyuria, No Polydipsia All other systems reviewed and are negative [facility] Past Medical History Attestation statement: The following information was validated with the patient. Medical History Anemia Asthma Migraines Right knee meniscal tear Surgical History History of carpal tunnel surgery of right wrist History of knee surgery History of tubal ligation Family History Family History Unknown No problems noted. Mother HTN (hypertension) Maternal Aunt Diabetes Mother Murmur Asthma Migraines Social History Social History Household Members: Children [facility] Are you a primary home health care respiratory therapist to a significant other at home: Yes Do you presently have visiting nurse or other home services: No Alcohol intake: current Alcohol intake frequency: holidays/special occasions only Patient Tobacco Use Status: Former Tobacco user Quit Date: 2000 Tobacco use type: Cigarette Advance Directives: No Advance Directives Information Provided: No service: No Current occupational status: employed Sexual orientation: Straight/Heterosexual Gender identity: Female Physical Exam Vital Signs: Vital Signs: Last Vital Signs Temp 98.6 F 03/12/22 10:29 Pulse 54 03/12/22 12:11 Resp 18 03/12/22 12:11 BP 114/64 03/12/22 12:11 Pulse Ox 99 03/12/22 12:11 O2 Del Method 03/12/22 12:11 BMI result Body Mass Index 32.9 Appearance: Alert. Oriented X3. No acute distress. Eyes: Pupils equal, round and reactive to light. ENT: Pharynx normal. Neck: Normal inspection. Neck supple. CVS: Normal heart rate and rhythm. Pulses normal. Respiratory: No respiratory distress. Breath sounds normal. Abdomen: Soft and nontender. Back: ttp along R lower paraspinals muscles reproduces pain no CVA ttp Skin: Skin warm and dry. Normal skin color. Normal skin turgor. Extremities: No lower extremity edema. No calf ttp Neuro: Oriented X 3. No motor deficit. No sensory deficit. Course Course Course Narrative: negative US labs normal stable for DC MDM - Female Genitourinary MDM Narrative Medical decision making narrative: 37 yo female no sig PMH here with c/o atraumatic low back pain with no associated GI or symptoms - NV intact, no b/b incontinence no saddle anesthesia patient is not toxic at this time. On macrobid from 03/06. Her pain seems more MSK in nature. At this time will obtain basic labs, UA, US to assess for renal colic though seems MSK on exam. Lab Data Result diagrams: 03/12/22 10:14 03/12/22 10:14 Labs: Lab Results 03/12/22 03/12/22 03/12/22 Range/Units 10:14 10:14 11:08 WBC 5.9 (4.8-10.8) X10*3/uL RBC 4.90 (4.20-5.50) X10*6/uL Hgb 13.3 (12.0-16.0) g/dl Hct 42.4 (37.0-47.0) % MCV 86.5 (80.0-98.0) fL MCH 27.1 (27.0-33.0) pg MCHC 31.4 (31.0-35.0) g/dl RDW 12.7 (11.0-16.0) % Plt Count 190 (160-400) X10*3/uL MPV 10.3 (9.4-12.3) fL Immature Gran % (Auto) 0.3 (0.0-0.4) % Neut % (Auto) 58.5 (45-73) % Lymph % (Auto) 31.1 (20-40) % [place] % (Auto) 8.5 (2-11) % Eos % (Auto) 0.9 (0-4) % Baso % (Auto) 0.7 (0-2) % Lymph # (Auto) 1.8 (1.2-4.9) X10*3/uL [place] # (Auto) 0.5 (0.1-1.2) X10*3/uL Eos # (Auto) 0.1 (0.0-0.4) X10*3/uL Baso # (Auto) 0.0 (0.0-0.2) X10*3/uL Abs Immat Gran (auto) 0.02 (0.00-0.03) X10*3/uL Absolute Neuts (auto) 3.4 (2.0-8.3) x10*3/uL Absolute Nucleated RBC 0.000 (0.0-0.012) X10*3/uL Nucleated RBC % (auto) 0.0 (0.0-0.2) /100WBC Sodium 138 (135-145) mmol/L Potassium 4.6 (3.3-5.1) mmol/L Chloride 107 (96-108) mmol/L Carbon Dioxide 27 (22-29) mmol/L Anion Gap 9 L (12-20) BUN 11 (9-16) mg/dL Creatinine 0.76 (0.5-1.4) mg/dL Estim Creat Clear Calc 100.3 Estimated GFR > 60 Random Glucose 103 (60-115) mg/dL Calcium 8.5 D (8.4-10.2) mg/dL Total Bilirubin 0.3 (0.0-1.0) mg/dL Direct Bilirubin < 0.2 (0.0-0.5) mg/dL AST 18 D (5-31) U/L ALT 17 (0-31) U/L Alkaline Phosphatase 59 D (39-117) U/L Total Protein 6.9 (6.5-8.0) g/dL Albumin 4.0 (3.5-5.0) g/dL Lipase 40 (8-78) U/L Urine Color STRAW Urine Appearance CLEAR Urine pH 6.0 (5.0-8.0) Ur Specific [place] 1.010 (1.005-1.025) Urine Protein NEG (NEG-TRACE) MG/DL Urine Glucose (UA) NEG (NEG) MG/DL Urine Ketones NEG (NEG) MG/DL Urine Blood NEG (NEG) Urine Nitrite NEG (NEG) Ur Leukocyte Esterase NEG (NEG) Urine Test (NEGATIVE) 03/12/22 Range/Units 11:08 WBC (4.8-10.8) X10*3/uL RBC (4.20-5.50) X10*6/uL Hgb (12.0-16.0) g/dl Hct (37.0-47.0) % MCV (80.0-98.0) fL MCH (27.0-33.0) pg MCHC (31.0-35.0) g/dl RDW (11.0-16.0) % Plt Count (160-400) X10*3/uL MPV (9.4-12.3) fL Immature Gran % (Auto) (0.0-0.4) % Neut % (Auto) (45-73) % Lymph % (Auto) (20-40) % [place] % (Auto) (2-11) % Eos % (Auto) (0-4) % Baso % (Auto) (0-2) % Lymph # (Auto) (1.2-4.9) X10*3/uL [place] # (Auto) (0.1-1.2) X10*3/uL Eos # (Auto) (0.0-0.4) X10*3/uL Baso # (Auto) (0.0-0.2) X10*3/uL Abs Immat Gran (auto) (0.00-0.03) X10*3/uL Absolute Neuts (auto) (2.0-8.3) x10*3/uL Absolute Nucleated RBC (0.0-0.012) X10*3/uL Nucleated RBC % (auto) (0.0-0.2) /100WBC Sodium (135-145) mmol/L Potassium (3.3-5.1) mmol/L Chloride (96-108) mmol/L Carbon Dioxide (22-29) mmol/L Anion Gap (12-20) BUN (9-16) mg/dL Creatinine (0.5-1.4) mg/dL Estim Creat Clear Calc Estimated GFR Random Glucose (60-115) mg/dL Calcium (8.4-10.2) mg/dL Total Bilirubin (0.0-1.0) mg/dL Direct Bilirubin (0.0-0.5) mg/dL AST (5-31) U/L ALT (0-31) U/L Alkaline Phosphatase (39-117) U/L Total Protein (6.5-8.0) g/dL Albumin (3.5-5.0) g/dL Lipase (8-78) U/L Urine Color Urine Appearance Urine pH (5.0-8.0) Ur Specific [place] (1.005-1.025) Urine Protein (NEG-TRACE) MG/DL Urine Glucose (UA) (NEG) MG/DL Urine Ketones (NEG) MG/DL Urine Blood (NEG) Urine Nitrite (NEG) Ur Leukocyte Esterase (NEG) Urine Test NEGATIVE (NEGATIVE) Discharge Plan Discharge Clinical Impression: Strain of lumbar region Qualifiers: Encounter type: initial encounter Qualified Code(s): S39.012A - Strain of muscle, fascia and tendon of lower back, initial encounter Patient Disposition: Home, Self-Care Instructions: Acute Low Back Pain (ED) Additional Instructions: return to ED for any worsening symptoms or concerns finish your macrobid RIGHT KIDNEY: 9.8 x 4.2 x 4.1 cm (SAG x AP x TRV). The kidney is normal in size, contour, and echogenicity. Renal cortical thickness is normal. No calculi or focal parenchymal lesions. No hydronephrosis. LEFT KIDNEY: 10.7 x 4.7 x 5.0 cm (SAG x AP x TRV). The kidney is normal in size, contour, and echogenicity. Renal cortical thickness is normal. No calculi or focal parenchymal lesions. No hydronephrosis. US/US retroperitoneal limited IMPRESSION: Unremarkable renal ultrasound. Prescriptions: New cyclobenzaprine 10 mg tablet 10 mg PO TID PRN (Reason: muscle spasm) Qty: 14 0RF lidocaine 4 % adhesive patch,medicated 1 patch topical DAILY PRN (Reason: pain) Qty: 10 0RF Rx Instructions: may leave on for up to 12 hrs ibuprofen 600 mg tablet 600 mg PO Q6H PRN (Reason: pain) Qty: 30 0RF No Action levofloxacin 500 mg tablet 500 mg PO DAILY 7 Days Qty: 7 0RF pzcjhvdmtj-rwklhvwpsnyky-npvk 50-325-40 mg capsule 1 cap PO NEEDED PRN (Reason: Headache) acetaminophen 500 mg tablet 1 tab PO Q8H PRN (Reason: Pain) albuterol sulfate [ProAir HFA] 90 mcg/actuation HFA aerosol inhaler 2 puff PO Q4-6H PRN (Reason: Shortness Of Breath Or Wheezing) simvastatin 10 mg tablet 1 tab PO QPM ondansetron HCl 4 mg tablet 1 tab PO BID PRN (Reason: nausea) ibuprofen 600 mg tablet 600 mg PO Q6H PRN (Reason: pain) Qty: 20 0RF meclizine 25 mg Tablet 25 mg PO TID PRN (Reason: Dizziness Or Vertigo) Qty: 30 3RF tranexamic acid [Lysteda] 650 mg tablet 1,300 mg PO TID 5 Days Qty: 30 2RF Referrals: Jo Higuera MD [Primary Care Provider] - (if not better in 3 days) Stand Alone Forms: Work/School Release
[2022-03-12 10:29] VITALS: BP 121/70; PULSE 58; RESP 18; TEMP 37; O2SAT 100
[2022-03-12 10:37] LABS: Anion Gap 9 (12-20); Blood Urea Nitrogen 11 mg/dL (9-16); Calcium 8.5 mg/dL (8.4-10.2); Carbon Dioxide 27 mmol/L (22-29); Chloride 107 mmol/L (96-108); Creatinine Clr Calc Pharmacy 100.3; Estimated Glomerular Filt Rate > 60; Glucose Random 103 mg/dL (60-115); Potassium 4.6 mmol/L (3.3-5.1); Sodium 138 mmol/L (135-145)
[2022-03-12 11:09] LABS: Alanine Aminotransferase 17 U/L (0-31); Alkaline Phosphatase 59 U/L (39-117); Aspartate Amino Transferase 18 U/L (5-31); Bilirubin Direct < 0.2 mg/dL (0.0-0.5); Bilirubin Total 0.3 mg/dL (0.0-1.0); Lipase 40 U/L (8-78); Total Protein 6.9 g/dL (6.5-8.0)
[2022-03-12 11:14] LABS: Appearance Urine CLEAR; Color Urine STRAW; Glucose Urine UA NEG (NEG); Leukocyte Esterase Urine NEG (NEG); Nitrite Urine NEG (NEG); Urine Blood NEG (NEG); Urine Ketones NEG (NEG); Urine Protein NEG (NEG-TRACE)
[2022-03-12 11:16] LABS: UPreg QC Valid YES; Urine Pregnancy NEGATIVE (NEGATIVE)
[2022-03-12 12:11] VITALS: BP 114/64; PULSE 54; RESP 18; O2SAT 99
== END 2022-03-12 13:57 | disposition home or self-care (01) ==
PROVIDERS: Emergency Provider Emergency Medicine; PCP Student in an Organized Health Care Education/Training Program
DX: M54.50 Low back pain, unspecified (principal); R10.9 Unspecified abdominal pain; Z79.899 Other long term (current) drug therapy; Z87.891 Personal history of nicotine dependence
CPT/HCPCS: 36415; 76775; 80048; 80076; 81003; 81025; 83690; 85025; 99283; 99284

== ENCOUNTER → 2022-03-18 07:55 | Outpatient (BNVA) | payer MEDICAID, SELFPAY | PROVIDERS: PCP Student in an Organized Health Care Education/Training Program; Visit Provider Obstetrics & Gynecology | DX: D21.9 Benign neoplasm of connective and other soft tissue, unspecified (principal); N93.9 Abnormal uterine and vaginal bleeding, unspecified; N87.0 Mild cervical dysplasia | CPT/HCPCS: 99212 ==

== ENCOUNTER 2022-04-14 14:43 | Outpatient (REF) | payer MEDICAID, SELFPAY ==
[2022-04-14 16:11] LABS: IDNOW Serial# 16C4AD1C
[2022-04-14 16:12] LABS: COVID-19 Test Negative (Negative)
== END 2022-04-14 14:44 | disposition home or self-care (01) ==
LOC: HO.LAB 14:43
PROVIDERS: Visit Provider Internal Medicine
DX: Z20.822 Contact with and (suspected) exposure to COVID-19 (principal)
CPT/HCPCS: 87635; C9803

== ENCOUNTER 2022-04-23 08:34 | Outpatient (REF) | payer MEDICAID, SELFPAY ==
--- NOTE | ~2022-04-23 | US_ITS ---
EXAMINATION: US PELVIS CLINICAL INFORMATION: Fibroid COMPARISON: Previous pelvic ultrasound most recent July 2021 TECHNIQUE: Ultrasound of the pelvis is performed using both transabdominal and transvaginal transducers along with Doppler. Transvaginal imaging is performed due to inadequate visualization transabdominally. FINDINGS: The uterus is anteverted and measures 8.6 x 5.3 x 6 cm in dimension. There are 2 focal uterine lesions suggestive of fibroids measuring 2 x 1.6 x 1.9 cm in the subserosal posterior uterine body and 1.1 x 1.4 x 1 cm in the intramural anterior uterine body. There are similar to previous exam. No other focal uterine lesion. Endometrium thickness is normal measuring 1.3 cm. There is a nabothian cyst in the cervix. The right ovary is normal-appearing and measures 3 x 1.6 x 1.3 cm. The left ovary measures 4 x 3 x 3.7 cm. There is a 2.4 x 2 x 2.5 cm complex left ovarian cyst probably representing a physiologic corpus luteal cyst. There is a small amount of fluid in the pelvis. US/US pelvic and transvaginal IMPRESSION: Stable small uterine fibroids. 2 x 2.5 cm complex left ovarian cyst probably representing a physiologic cyst.
== END 2022-04-23 08:35 | disposition home or self-care (01) ==
LOC: HO.HMGCX 08:34
PROVIDERS: PCP Student in an Organized Health Care Education/Training Program; Visit Provider Obstetrics & Gynecology
DX: D21.9 Benign neoplasm of connective and other soft tissue, unspecified (principal)
CPT/HCPCS: 76830; 76856

== ENCOUNTER 2022-05-07 07:56 | Outpatient (REF) | payer MEDICAID, SELFPAY ==
[2022-05-09 10:27] LABS: CA-125 5 U/mL (<35)
== END 2022-05-07 07:57 | disposition home or self-care (01) ==
LOC: HO.LAB 07:56
PROVIDERS: PCP Student in an Organized Health Care Education/Training Program; Visit Provider Obstetrics & Gynecology
DX: N83.299 Other ovarian cyst, unspecified side (principal); D21.9 Benign neoplasm of connective and other soft tissue, unspecified
CPT/HCPCS: 36415; 86304; 99212

== ENCOUNTER 2022-05-30 14:54 | Outpatient (REF) | payer MEDICAID, SELFPAY ==
--- NOTE | ~2022-05-30 | US_ITS ---
EXAMINATION: US ABDOMEN COMPLETE CLINICAL INFORMATION: Upper abdominal pain. COMPARISON: Ultrasound abdomen complete 06/04/2021 and 02/04/2021. CT abdomen and pelvis 04/13/2019. TECHNIQUE: Real-time imaging of the abdominal viscera. FINDINGS: PANCREAS: Normal. ABDOMINAL AORTA: The proximal, mid, and distal segments are normal in caliber. INFERIOR VENA CAVA: Visualized portions are normal. LIVER: Normal. The liver is normal in size. The liver contour is normal. Parenchymal echogenicity is normal. No focal hepatic lesion. There is no intrahepatic biliary duct dilatation seen. GALLBLADDER: Contracted limiting its evaluation. No definite stones, sludge, polyps, or pericholecystic fluid. Negative Lazo's sign. COMMON BILE DUCT: Normal in caliber measuring 0.4 cm in diameter. RIGHT KIDNEY: Mild prominence of the renal pelvis and proximal right ureter. No renal calculi or focal parenchymal lesions. The kidney measures 10.7 cm in maximum dimension. LEFT KIDNEY: Normal. No hydronephrosis. No renal calculi or focal parenchymal lesions. The kidney measures 11.6 cm in maximum dimension. SPLEEN: Normal. The spleen measures 11.9 cm in maximum dimension. FREE FLUID: None. US/US abdomen complete IMPRESSION: Mild prominence of the right renal pelvis and proximal right ureter that could be physiologic or related with mild hydronephrosis. Recommend clinical correlation and if indicated further evaluation with a CT of the abdomen/pelvis. Contracted gallbladder limiting assessment of wall thickening. No definite shadowing stones or pericholecystic free fluid.
== END 2022-05-30 14:55 | disposition home or self-care (01) ==
LOC: HO.US 14:54
PROVIDERS: Visit Provider Internal Medicine Geriatric Medicine
DX: R10.10 Upper abdominal pain, unspecified (principal); R11.0 Nausea
CPT/HCPCS: 76700

== ENCOUNTER 2022-09-09 14:27 | Outpatient (REF) | payer MEDICAID, SELFPAY | END 2022-09-09 14:28 | disposition home or self-care (01) | LOC: HO.US 14:27 | PROVIDERS: Visit Provider Obstetrics & Gynecology | DX: N83.299 Other ovarian cyst, unspecified side (principal) | CPT/HCPCS: 76830; 76856 ==

== ENCOUNTER 2022-09-29 11:37 | Outpatient (REF) | payer MEDICAID, SELFPAY ==
--- NOTE | ~2022-09-29 | CT_ITS ---
EXAMINATION: CT ABDOMEN AND PELVIS WITH CONTRAST CLINICAL INFORMATION: Abdominal pain COMPARISON: CT abdomen pelvis 04/13/2019 TECHNIQUE: Multidetector volumetric images were obtained from the superior aspect of the liver through the pubic symphysis following administration 85 mL of Omnipaque 350 intravenous contrast. Sagittal and coronal reformatted images were obtained on the technologist's workstation. Oral contrast: No This CT examination was performed using dose optimization techniques as appropriate, variously including the following: *Automated exposure control *Adjustment of mA and/or kV according to patient size (this includes techniques or standardized protocols for targeted exams where dose is matched to indication/reason for exam; i.e. extremities or head) *Use of iterative reconstruction technique DLP: 494 mGy-cm FINDINGS: LUNG BASES: The visualized lung bases are unremarkable. LIVER, GALLBLADDER, AND BILIARY TREE: The liver is normal in size, shape, and attenuation. No focal hepatic lesion or biliary ductal dilatation is present. The gallbladder is unremarkable with no evidence of radiopaque gallstones, gallbladder wall thickening, or obvious pericholecystic inflammatory changes. PANCREAS: Unremarkable. SPLEEN: Unremarkable. ADRENAL GLANDS: Unremarkable. KIDNEYS AND URETERS: The kidneys are normal in size, shape, and attenuation. No hydronephrosis, hydroureter, or calculi seen. No perinephric stranding. BLADDER: Unremarkable. GASTROINTESTINAL TRACT: The small and large bowel are unremarkable. The appendix is unremarkable. ABDOMINAL WALL: No significant hernia is appreciated. LYMPH NODES: Normal. VASCULAR: Unremarkable. PELVIC VISCERA: Unremarkable. OSSEOUS STRUCTURES: Unremarkable. CT/CT abdomen pelvis w IV con IMPRESSION: No significant abnormality. Fleischner guidelines were followed.
[2022-09-29] MEDS: Barium Sulfate Oral (Berry) 450 ML ORAL.SUSP 900 ML PO (14:20)
[2022-09-29] MEDS: iohexoL 350 MG/ML 100 ML INFUS..BTL IV (14:21)
== END 2022-09-29 11:38 | disposition home or self-care (01) ==
LOC: HO.CT 11:37
PROVIDERS: Visit Provider Emergency Medicine
DX: R10.31 Right lower quadrant pain (principal)
CPT/HCPCS: 74177; Q9967

== ENCOUNTER → 2022-10-22 10:28 | Outpatient (BNVA) | payer MEDICAID, SELFPAY | PROVIDERS: PCP Student in an Organized Health Care Education/Training Program; Visit Provider Obstetrics & Gynecology | DX: N83.299 Other ovarian cyst, unspecified side (principal); D21.9 Benign neoplasm of connective and other soft tissue, unspecified | CPT/HCPCS: 99212 ==

== ENCOUNTER 2023-03-11 12:40 | Day surgery (SDC) | payer MEDICAID, SELFPAY ==
--- NOTE | 2023-03-10 12:21 | HO.ANESPROP2 ---
Documented by User: Geneva Vaz NP 03/10/23 12:21 HPI - Anesthesia Eval Consult details Narrative: 38yo F for Upper Endoscopy PMFSH Active Problems Active Problems: All Active Problems (Updated 10/22/22 @ 10:47 by Aaron Olivares MD) Complex ovarian cyst (Acute) Abnormal uterine bleeding (Acute) Menorrhagia (Acute) Pelvic pain (Acute) Anemia (Chronic) Myoma (Acute) Well woman exam (Acute) ASCUS with positive high risk HPV cervical (Acute) Dysplasia of cervix, low grade (BENNEI 1) (Acute) Past Medical History Medical History Anemia Asthma Migraines Right knee meniscal tear Family History Family History Unknown No problems noted. Mother HTN (hypertension) Maternal Aunt Diabetes Mother Murmur Asthma Migraines Surgical History Surgical History History of carpal tunnel surgery of right wrist History of knee surgery History of tubal ligation Social History Social History Household Members: Children [facility] Are you a primary pet care assistant to a significant other at home: Yes Do you presently have visiting nurse or other home services: No Alcohol intake: current Alcohol intake frequency: holidays/special occasions only Patient Tobacco Use Status: Former Tobacco user Quit Date: 2000 Tobacco use type: Cigarette Are you DNR?: No Advance Directives: No Advance Directives Information Provided: Yes service: No Current occupational status: employed Sexual orientation: Straight/Heterosexual Gender identity: Female Meds Allergies Allergy/AdvReac Type Severity Reaction Status Date / Time No Known Allergies Allergy Verified 10/22/22 10:42 Home Medications Medication Instructions Recorded Confirmed Last Taken Type acetaminophen 500 mg tablet 1 tab PO Q8H PRN Pain 11/28/20 03/11/23 Unknown History albuterol sulfate 90 mcg/actuation 2 puff PO Q4-6H PRN Shortness Of 11/28/20 03/11/23 Unknown History aerosol inhaler (ProAir HFA) Breath Or Wheezing whwbaaajro-dkxiuxocstrlt-yxhpmsvu 1 cap PO NEEDED PRN Headache 11/28/20 03/11/23 Unknown History 50 mg-325 mg-40 mg capsule ondansetron HCl 4 mg tablet 1 tab PO BID PRN nausea 02/19/22 03/11/23 Unknown History Exam Exam Date and Time: March 10, 2023 122 Assessment and Plan Assessment Anesthesia Assessment: Chart Reviewed Documented by User: Kailey Hinson MD 03/11/23 13:57 PMFSH Past Medical History Medical History Anemia Asthma Migraines Right knee meniscal tear Family History Family History Unknown No problems noted. Mother HTN (hypertension) Maternal Aunt Diabetes Mother Murmur Asthma Migraines Family history of problems with anesthesia: No Surgical History Surgical History History of carpal tunnel surgery of right wrist History of knee surgery History of tubal ligation History of Problems with Anesthesia: No Social History Social History Household Members: Children [facility]: [facility] Are you a primary pet care assistant to a significant other at home: Yes Do you presently have visiting nurse or other home services: No Alcohol intake: current Alcohol intake frequency: holidays/special occasions only Patient Tobacco Use Status: Former Tobacco user Quit Date: 2000 Tobacco use type: Cigarette Are you DNR?: No Advance Directives: No Advance Directives Information Provided: Yes service: No Current occupational status: employed Sexual orientation: Straight/Heterosexual Gender identity: Female Meds Allergies Allergy/AdvReac Type Severity Reaction Status Date / Time No Known Allergies Allergy Verified 10/22/22 10:42 Home Medications Medication Instructions Recorded Confirmed Last Taken Type acetaminophen 500 mg tablet 1 tab PO Q8H PRN Pain 11/28/20 03/11/23 Unknown History albuterol sulfate 90 mcg/actuation 2 puff PO Q4-6H PRN Shortness Of 11/28/20 03/11/23 Unknown History aerosol inhaler (ProAir HFA) Breath Or Wheezing rppibysfvl-kczhcjrjiqvme-tuatbltd 1 cap PO NEEDED PRN Headache 11/28/20 03/11/23 Unknown History 50 mg-325 mg-40 mg capsule ondansetron HCl 4 mg tablet 1 tab PO BID PRN nausea 02/19/22 03/11/23 Unknown History Exam Airway Mallampati Class: I TM Dist: >3cm Neck ROM: Full Loose/Missing/Broken Teeth: No Heart: rr Lungs: cta Assessment and Plan Final Anesthetic Review Family History of Problems with Anesthesia: No History of Problems with Anesthesia: No NPO: Yes ASA Class: II Final Preanesthetic Review: No Changes in Pt Med Stat, Meds/Allgs Chart Reviewed, Consent Obtained/Reviewed and Anes Risks/Benef Reviewed Patient Risk: Low Procedure Risk: Low Anesthetic Plan Anesthetic Plan: MAC: Disposition: Standard PACU
[2023-03-11 13:02] VITALS: BMI 34.0
[2023-03-11 13:05] VITALS: BP 114/70; PULSE 62; RESP 18; TEMP 36.3; O2SAT 98
[2023-03-11] MEDS: Lactated Ringers 1,000 ML 100 ML IVCONT (13:19)
--- NOTE | 2023-03-11 13:34 | MHC.SHP ---
Pre-Procedural Eval Section A Date of Service: 03/11/23 The patient is an INPATIENT: No Changes since office visit: No Cold of Flu in the past 2 weeks, No New Medical Problems, No Changes in Medication and No Patient answered all questions The History & Physical has been completed within 30 days and I have reviewed it.: Yes Section B Chief Complaint: Epigastric pain Allergies: Allergies Allergy/AdvReac Type Severity Reaction Status Date / Time No Known Allergies Allergy Verified 10/22/22 10:42 Plan I have reviewed the history and physical and performed a pertinent physical examination on my patient. No changes have occurred unless specified. Time Spent With Patient Time: Total time managing care of this patient today ____ minutes.
[2023-03-11 13:59] VITALS: BP 95/53; PULSE 85; RESP 16; TEMP 36.7; O2SAT 98
--- NOTE | 2023-03-11 14:06 | PM.OP ---
Brief Operative Note Date of Service: 03/11/23 Pre-op diagnosis: epigastric pain abnl celiac panel Post-op diagnosis: same (duodenitis) Procedure: EGD Surgeon: Noé Ness Anesthesia: MAC Was an Manager Of Network used for this Procedure?: No Estimated blood loss (mL): 2 Pathology: other Condition: stable Disposition: PACU
[2023-03-11 14:14] VITALS: BP 104/63; PULSE 74; RESP 16; O2SAT 98
[2023-03-11 14:30] VITALS: BP 106/61; PULSE 60; RESP 17; TEMP 37.1; O2SAT 99
--- NOTE | 2023-03-11 23:36 | OP_ITS ---
DATE OF SERVICE: 03/11/2023 SURGEON: Noé Ness MD INDICATIONS: Epigastric pain and abnormal celiac antibody panel. PREOPERATIVE DIAGNOSIS: POSTOPERATIVE DIAGNOSIS: PROCEDURE PERFORMED: Upper endoscopy with biopsy. ESTIMATED BLOOD LOSS: COMPLICATIONS: ANESTHESIA: Monitored anesthesia care. ASSISTANTS: SPECIMENS: DESCRIPTION OF PROCEDURE: History and physical performed. The risks and benefits of the procedure were explained to the patient and informed consent was obtained. The patient was placed in the left lateral decubitus position. The Olympus video gastroscope was introduced into the esophagus, stomach, and duodenum. Examination was performed. The scope was removed. She tolerated the procedure well and was returned to recovery area in stable condition. FINDINGS: Esophagus: The esophagus was normal. There was no esophagitis. Biopsies were obtained from the EG junction. Stomach: The stomach showed no evidence of masses, ulcers, or polyps. Antral biopsies were obtained. Duodenum: There was patchy duodenitis with multiple superficial areas of ulceration and friability. The appearance was somewhat atypical for classical celiac sprue. Biopsies were obtained from the abnormal mucosa. IMPRESSION: Duodenitis. RECOMMENDATION: Follow up the biopsy results. MD LATASHA Lomeli/ELINOR / [id number] MTDD
== END 2023-03-11 15:11 | disposition home or self-care (01) ==
PROVIDERS: PCP Student in an Organized Health Care Education/Training Program; Visit Provider Internal Medicine Gastroenterology
PROC: 0DJ08ZZ Inspection of Upper Intestinal Tract, Via Natural or Artificial Opening Endoscopic (ICD-10-PCS; CPT 43235; principal; 2023-03-11 13:40)
DX: R89.4 Abnormal immunological findings in specimens from other organs, systems and tissues (principal); R10.13 Epigastric pain; R11.2 Nausea with vomiting, unspecified; K29.80 Duodenitis without bleeding; J45.909 Unspecified asthma, uncomplicated; G43.909 Migraine, unspecified, not intractable, without status migrainosus; Z79.899 Other long term (current) drug therapy
CPT/HCPCS: 43239; 88305; 88342

== ENCOUNTER 2023-04-21 10:48 | Outpatient (REF) | payer MEDICAID, SELFPAY ==
[2023-04-21 14:30] LABS: MANUAL DIFF FLAG NO
[2023-04-21 14:56] LABS: Basophils Absolute Auto 0.1 X10*3/uL (0.0-0.2); Basophils Percent Auto 0.8 % (0-2); Eosinophils Absolute Auto 0.1 X10*3/uL (0.0-0.4); Hematocrit 41.4 % (37.0-47.0); Hemoglobin 12.6 g/dl (12.0-16.0); Imm Gran Abs Auto 0.02 X10*3/uL (0.00-0.03); Imm Gran Pct Auto 0.3 % (0.0-0.4); Lymphocytes Absolute Auto 1.2 X10*3/uL (1.2-4.9); Lymphocytes Percent Auto 15.6 % (20-40); Mean Corpuscular HGB Conc 30.4 g/dl (31.0-35.0); Mean Corpuscular Hemoglobin 25.6 pg (27.0-33.0); Mean Platelet Volume 11.3 fL (9.4-12.3); Monocytes Absolute Auto 0.5 X10*3/uL (0.1-1.2); Neutrophils Absolute Auto 5.9 x10*3/uL (2.0-8.3); Neutrophils Percent Auto 76.3 % (45-73); Platelet Count 240 X10*3/uL (160-400); Red Blood Count 4.93 X10*6/uL (4.20-5.50); Red Cell Distribution Width 13.7 % (11.0-16.0); White Blood Count 7.7 X10*3/uL (4.8-10.8)
[2023-04-22 04:21] LABS: ~HepC Num1 12.87 S/CO (0.00-0.79); ~Hepatitis C Antibody Reactive (Nonreactive)
[2023-04-23 15:47] LABS: TS Negative Control Passed; TS Panel A 0; TS Panel B 0; TS Positive Control Passed; TSpotTB Negative (Negative)
[2023-04-25 17:49] LABS: HCV Log PCR <1.18 NOT DETECTED Log IU/mL (NOT DETECTED); HepC Viral Load <15 NOT DETECTED IU/mL (NOT DETECTED)
== END 2023-04-21 10:49 | disposition home or self-care (01) ==
LOC: HO.CHCLDS 10:48
PROVIDERS: Visit Provider Student in an Organized Health Care Education/Training Program
DX: Z00.00 Encounter for general adult medical examination without abnormal findings (principal); Z11.1 Encounter for screening for respiratory tuberculosis; D50.8 Other iron deficiency anemias
CPT/HCPCS: 36415; 85025; 86481; 86803; 87522; 87536; 87900

== ENCOUNTER 2023-04-23 14:36 | Outpatient (REF) | payer MEDICAID, SELFPAY ==
[2023-04-28 15:52] LABS: HIV RNA PCR Qn Copies Not Detected Copies/mL; HIV RNA PCR Qn Log Copies Not Detected Log cps/mL
== END 2023-04-23 14:37 | disposition home or self-care (01) ==
LOC: HO.CHCLDS 14:36
PROVIDERS: Visit Provider Student in an Organized Health Care Education/Training Program
DX: Z00.00 Encounter for general adult medical examination without abnormal findings (principal); Z11.4 Encounter for screening for human immunodeficiency virus [HIV]
CPT/HCPCS: 36415; 87536; 87900

== ENCOUNTER 2023-04-27 12:24 | Outpatient (AMB) | payer MEDICAID, SELFPAY ==
--- NOTE | 2023-04-27 12:28 | MHC.OFFVIS ---
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 Complaining of heavy menstrual cycles associated with pelvic cramping and passage of blood clots and right lower quadrant pain over the last few weeks Last Pap/HPV was ascus/HPV positive in 08/11, followed by colpo biopsy/ECC which showed BENNIE 1 PFS Medical History Anemia Asthma Dysplasia of cervix, low grade (BENNIE 1) Migraines Right knee meniscal tear Surgical History History of carpal tunnel surgery of right wrist History of knee surgery History of tubal ligation Family History Unknown No problems noted. 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 at home: Yes Do you presently have visiting nurse or other home services: No Alcohol intake: current Alcohol intake frequency: holidays/special occasions only Patient Tobacco Use Status: Former Tobacco user Quit Date: 2000 Tobacco use type: Cigarette service: No Current occupational status: employed Sexual orientation: Straight/Heterosexual Gender identity: Female Female Reproductive History Menstrual Age of Menarche: 12 Date of last menstrual period: 04/12/23 control method: permanent sterilization Permanent Sterilization: BTL Total pregnancies: 4 Full term: 4 Number of Living Children: 4 Date of last pap smear: 07/30/21 (ascus +hpv) History of abnormal pap smear: Yes (10/12 colpo BENNIE 1) Review of Systems Const All systems reviewed & are unremarkable except as noted in HPI and below Card Reports as per HPI Resp Reports as per HPI GI Reports as per HPI and Reports no additional complaints Reports as per HPI Physical Exam Vital Signs: Last Vital Signs BP 116/70 04/27/23 12:29 BMI result Body Mass Index 72.6 Const General: cooperative, healthy appearing and comfortable Chest Chest palpation & inspection: normal inspection of the chest and normal palpation of entire chest wall Breast/axilla inspection: normal inspection of the breasts and normal inspection of the axillae Breast/axilla palpation: normal palpation of the breasts, normal palpation of the axillae and no axillary lymphadenopathy Resp Effort & Inspection: normal respiratory effort Auscultation: clear to auscultation bilaterally Percussion: percussion normal Cardio Palpation: normal PMI Rate: regular rate Rhythm: regular rhythm Heart sounds: no murmurs and no rubs Peripheral pulses: Peripheral pulses 2+ throughout GI Inspection: Yes normal to inspection Palpation (GI): Soft to palpation, nontender, no guarding, not rigid and No hepatosplenomegaly present Percussion: Yes normal to percussion Auscultation: normal bowel sounds Rectal Exam - Female: deferred General: Yes bladder normal to palpation External Female Exam: No lesion Speculum Exam - Vagina: normal appearance of the vagina, normal palpation, normal vaginal discharge and not erythematous Speculum Exam - Cervix: normal appearance of the cervix and normal palpation Bimanual exam- vagina & uterus: normal bimanual exam, normal palpation, uterine size normal, bladder normal to palpation, consistency normal and normal palpation Bimanual Exam- Adnexa, other: normal adnexae, no masses and no tenderness Assessment & Plan Assessment & Plan (1) Well woman exam: Code(s): Z01.419 - Encounter for gynecological examination (general) (routine) without abnormal findings Plan: Cotesting done. Counseled the patient about the recommended dietary allowance of 1000 mg of Calcium & 600 IU of vitamin D. The patient was instructed to perform monthly self-breast exams and to schedule an annual exam in a year; All questions answered and the patient verbalized understanding. Instructed the patient to schedule annual exam in a year (2) Abnormal uterine bleeding: Code(s): N93.9 - Abnormal uterine and vaginal bleeding, unspecified Plan: Co testing done, GC and chlamydia taken CBC, TSH, prolactin, HCG, and pelvic ultrasound ordered. Discussed with the patient the different causes of abnormal bleeding including thyroid disorders, uterine and ovarian pathology, endometrial hyperplasia, carcinoma and other potential causes. Discussed with the patient the work up including CBC (to r/o anemia), TSH, pelvic Ultrasound, endometrial biopsy to r/o endometrial pathology. All questions answered and the patient verbalized understanding. Instructed the patient to schedule an appointment for an endometrial biopsy in 2 weeks. (3) Pelvic pain: Code(s): R10.2 - Pelvic and perineal pain Plan: Urine dip and test done in the office were both negative. GC and chlamydia taken and pelvic ultrasound ordered. Discussed with the patient the differential diagnosis of pelvic pain including but not limited to adnexal, uterine masses, pelvic infections (PID), GI the (Irritable bowel syndrome, diverticulitis, others), musculoskeletal, myofascial pain abdominal wall , adhesions, endometriosis, psychological and others causes. Will check results and treat accordingly. All questions answered, the patient verbalized understanding. Instructed the patient to schedule follow-up appointment in 2 weeks Orders: Orders HCG Quantitative Today N93.9 - Abnormal uterine and vaginal bleeding, unspecified Prolactin Today N93.9 - Abnormal uterine and vaginal bleeding, unspecified TSH reflex Free T4 Today N93.9 - Abnormal uterine and vaginal bleeding, unspecified Complete Blood Count no Diff Today N93.9 - Abnormal uterine and vaginal bleeding, unspecified US pelvic and transvaginal Today N93.9 - Abnormal uterine and vaginal bleeding, unspecified Coding Level of Care Code Est Pt Prev Care 18-39y(02925) Diagnoses Well woman exam Z01.419 Abnormal uterine bleeding N93.9 Pelvic pain R10.2
[2023-04-27 12:29] VITALS: BP 116/70; BMI 72.6
== END 2023-04-27 12:58 | disposition home or self-care (01) ==
LOC: HO.HWS 12:24
PROVIDERS: PCP Student in an Organized Health Care Education/Training Program; Visit Provider Obstetrics & Gynecology
DX: Z01.419 Encounter for gynecological examination (general) (routine) without abnormal findings (principal); N93.9 Abnormal uterine and vaginal bleeding, unspecified; R10.2 Pelvic and perineal pain; Z13.9 Encounter for screening, unspecified; Z32.02 Encounter for pregnancy test, result negative
CPT/HCPCS: 99395

== ENCOUNTER 2023-04-27 12:24 | Outpatient (REF) | payer MEDICAID, SELFPAY ==
[2023-04-27 14:30] LABS: Hematocrit 42.6 % (37.0-47.0); Hemoglobin 13.1 g/dl (12.0-16.0); Mean Corpuscular HGB Conc 30.8 g/dl (31.0-35.0); Mean Corpuscular Hemoglobin 25.9 pg (27.0-33.0); Mean Corpuscular Volume 84.4 fL (80.0-98.0); Mean Platelet Volume 11.1 fL (9.4-12.3); Platelet Count 306 X10*3/uL (160-400); Red Blood Count 5.05 X10*6/uL (4.20-5.50); Red Cell Distribution Width 13.6 % (11.0-16.0); White Blood Count 9.9 X10*3/uL (4.8-10.8)
[2023-04-27 15:54] LABS: HCG Quantitative < 2 mIU/mL; TSH reflex Free T4 0.68 uIU/mL (0.32-4.0)
[2023-04-27 16:06] LABS: CT PCR NOT DETECTED (Not Detect.); NG PCR NOT DETECTED (Not Detect.)
[2023-04-28 05:13] LABS: Prolactin 5.6 ng/mL
[2023-05-02 09:44] LABS: HPV mRNA E6/E7 rflx Not Detected (Not Detected)
== END 2023-04-27 12:25 | disposition home or self-care (01) ==
LOC: HO.LNP 12:24
PROVIDERS: PCP Student in an Organized Health Care Education/Training Program; Visit Provider Obstetrics & Gynecology
DX: Z01.419 Encounter for gynecological examination (general) (routine) without abnormal findings (principal); Z11.51 Encounter for screening for human papillomavirus (HPV); R10.2 Pelvic and perineal pain; N93.9 Abnormal uterine and vaginal bleeding, unspecified; N87.0 Mild cervical dysplasia
CPT/HCPCS: 0353U; 81003; 81025; 84146; 84443; 84702; 85027; 87624; 88142

== ENCOUNTER 2023-05-08 11:02 | Outpatient (REF) | payer MEDICAID, SELFPAY ==
--- NOTE | ~2023-05-08 | US_ITS ---
EXAMINATION: US PELVIS CLINICAL INFORMATION: Abnormal uterine, vaginal bleeding, last menstrual period 04/12/2023. COMPARISON: 09/09/2022 TECHNIQUE: Ultrasound of the pelvis is performed using both transabdominal and transvaginal transducers along with Doppler. Transvaginal imaging is performed due to inadequate visualization transabdominally. FINDINGS: Uterus is anteverted, heterogeneous and measures 9.3 x 5.5 x 5.4 cm, volume 134.2 mL. Endometrial thickness is 1.7 cm. 1.6 cm right body fibroid, previously 1.6 cm. 1.4 cm submucosal fibroid left body of the uterus, previously 1.4 cm. Endometrium is echogenic with thickness of 1.7 cm. Small amount of free fluid. Nabothian cysts present. Right ovary is unremarkable and measures 2.8 x 1.3 x 2.3 cm, volume 4.4 mL. Left ovary measures 2.3 x 2.1 x 1.5 cm. 1.3 x 1.2 x 1.1 cm complex, diffusely hypoechoic left ovarian lesion with peripheral vascularity. US/US pelvic and transvaginal IMPRESSION: 1. Fibroid uterus. 2. Echogenic endometrium with thickness of 17 mm. 3. Left ovarian 1.3 cm complex hypoechoic lesion, possibly a corpus luteum. Recommend followup ultrasound in 6-8 weeks.
== END 2023-05-08 11:03 | disposition home or self-care (01) ==
LOC: HO.US 11:02
PROVIDERS: PCP Student in an Organized Health Care Education/Training Program; Visit Provider Obstetrics & Gynecology
DX: N93.9 Abnormal uterine and vaginal bleeding, unspecified (principal)
CPT/HCPCS: 76830; 76856

== ENCOUNTER 2023-08-10 15:05 | Outpatient (REF) | payer MEDICAID, SELFPAY ==
--- NOTE | ~2023-08-10 | US_ITS ---
EXAMINATION: US PELVIS COMPLETE CLINICAL INFORMATION: Pelvic pain COMPARISON: Pelvic ultrasound 05/08/2023 TECHNIQUE: Transabdominal and transvaginal imaging was performed. FINDINGS: The uterus is of normal size and echogenicity measuring 8.9 x 4.8 x 5.7 cm. A regular homogeneous endometrium is identified measuring 1.4 cm. Nabothian cysts in the cervix. Multiple uterine myomas including a 2 cm subserosal myoma in the posterior body, previously 1.6 cm, a 1.4 similar subserosal myoma in the right body, previously 1.4 cm and a new 8 mm intramural myoma in the right body of uterus. Both ovaries are of normal size and echogenicity. The right measures 3.1 x 1.6 x 2.9 cm for a volume of 7.5 mL. The left measures 2.7 x 2.1 x 1.6 cm for a volume of 4.8 mL. Resolution of the previously seen left hemorrhagic corpus luteum. There is small volume simple pelvic free fluid. US/US pelvic and transvaginal IMPRESSION: 1. Multiple uterine myomas, the largest measuring 2 cm and a new 8 mm intramural myoma in the right body of the uterus. 2. Small volume simple pelvic free fluid within physiologic limits of volume. 3. Normal sonographic appearance of the ovaries.
== END 2023-08-10 15:06 | disposition home or self-care (01) ==
LOC: HO.US 15:05
PROVIDERS: Visit Provider Obstetrics & Gynecology
DX: R10.2 Pelvic and perineal pain (principal)
CPT/HCPCS: 76830; 76856

== ENCOUNTER 2023-08-11 15:17 | Outpatient (AMB) | payer MEDICAID, SELFPAY ==
--- OUTSIDE RECORDS SUMMARY | 2023-08-11 15:19 | XMS_ITS | Continuity of Care Document ---
Author Name Unknown Organization [facility] ter Address [address] [place] [id number]- Care Team Providers Care Night Shift Supervisor Name Role Phone Jo Higuera MD Primary Care Physician [phone] Encounter [facility]BR [id number] Date(s): 10/23/19 - 10/23/[address] [address]- [facility] Encounter Diagnosis Gastritis(Final) - 10/23/19 Discharge Disposition: A-D/C Home Attending Physician: Jv Mcfadden MD Admitting Physician: Jv Mcfadden MD Referring Physician: Not on Staff, Referring MD Allergies, Adverse Reactions, Alerts Substance Reaction Severity Status NKA Active Medications famotidine 20 mg oral tablet 20 mg, 1, tablet, By Mouth, 2 times a day, avoid eating and drinking for 10 minutes after each dose, # 28 tablet, Refills 0, Tot. Refills 0, Soft Stop, 10/23/19 10:11:00 EST, Route to Pharmacy Electronically, [address], 157.48, cm, 07/23... Start Date: 10/23/19 Stop Date: 11/06/19 Status: Ordered ibuprofen 800 mg oral tablet 800 mg, 1, tablet, By Mouth, 3 times a day, PRN, Refills 0, Maintenance, Pain , Moderate, 08/10/19 9:14:04 EST Start Date: 08/10/19 Status: Ordered loratadine 10 mg oral tablet 10 mg, 1, tablet, By Mouth, Daily, # 30 tablet, Refills 0, Maintenance, 03/31/19 10:17:01 EDT Start Date: 03/31/19 Status: Ordered ProAir HFA 90 mcg/inh inhalation aerosol with adapter 1, puffs, Inhalation, Every 4 hours, PRN, # 8.5 Gm, Refills 0, Maintenance, 03/31/19 10:15:00 EDT, Aerosol Start Date: 03/31/19 Status: Ordered Vital Signs Most recent to oldest [Reference Range]: 1 2 3 Oxygen Saturation [94-100 %] 99 % (10/23/19 11:01 AM) 100 % (10/23/19 8:56 AM) 100 % (10/23/19 8:52 AM) Pulse Rate [55-90 bpm] 60 bpm (10/23/19 11:01 AM) 74 bpm (10/23/19 8:56 AM) 88 bpm (10/23/19 8:52 AM) Blood Pressure [90-138/55-84 mm Hg] 109/71mm Hg (10/23/19 11:01 AM) 116/64mm Hg (10/23/19 8:56 AM) Respiratory Rate [16-30 br/min] 20 br/min (10/23/19 11:01 AM) 17 br/min (10/23/19 8:56 AM) Temperature [96.8-100.4 DegF] 98.0 DegF (10/23/19 8:56 AM) Mode of Delivery (Oxygen) Room air (10/23/19 11:01 AM) Room air (10/23/19 8:56 AM) Room air (10/23/19 8:52 AM) Blood pressure sites Arm, right (10/23/19 11:01 AM) Arm, left (10/23/19 8:56 AM) Temperature Route Oral (10/23/19 8:56 AM) Social History Social History Type Response Smoking Status Never (less than 100 in lifetime) entered on: 05/04/19 Sex
--- OUTSIDE RECORDS SUMMARY | 2023-08-11 15:19 | XMS_ITS | Continuity of Care Document ---
Author Name Unknown Organization [facility] al Address [address] [place] [address]- Care Team Providers Care Traveling Secretary Name Role Phone Jo Higuera MD Primary Care Physician Encounter [facility] Date(s): 10/26/22 - 10/26/[address] [address]- Encounter Diagnosis Vomiting(Final) - 10/26/22 Discharge Disposition: A-D/C Home Attending Physician: Criselda Lawrence MD Admitting Physician: Criselda Lawrence MD Referring Physician: Not on Staff, Referring MD Allergies, Adverse Reactions, Alerts No Known Allergies Medications Acetaminophen Tablet 975 mg, Tablet, By Mouth, Once, STAT, 10/26/22 9:30:00 EST, Stop date 10/26/22 9:30:00 EST Start Date: 10/26/22 Stop Date: 10/26/22 Status: Completed Butalbital 0 Refills, Maintenance, 08/26/21 6:49:00 EST, Partial fill upon patient request if the prescriptionis for a schedule II opioid drug. Start Date: 08/26/21 Status: Ordered famotidine 20 mg oral tablet 20 mg, 1, tablet, By Mouth, 2 times a day, avoid eating and drinking for 10 minutes after each dose, # 28 tablet, Refills 0, Tot. Refills 0, Soft Stop, 10/23/19 10:11:00 EST, Route to Pharmacy Electronically, [address], 157.48, cm, 07/23... Start Date: 10/23/19 Stop Date: 11/06/19 Status: Ordered ibuprofen 800 mg oral tablet 800 mg, 1, tablet, By Mouth, 3 times a day, PRN, Refills 0, Maintenance, Pain , Moderate, 08/10/19 9:14:04 EST Start Date: 08/10/19 Status: Ordered ondansetron 4 mg oral tablet, disintegrating 1 tablet = 4 mg, By Mouth, Every 8 hours, PRN Nausea & Vomiting, # 10 tablet, 0 Refills, Maintenance, 10/26/22 10:56:00 EST, Tablet, [id number], Partial fill upon patient requestif the prescription is for a schedule II opioid drug.,... Start Date: 10/26/22 Status: Ordered ProAir HFA 90 mcg/inh inhalation aerosol with adapter 1, puffs, Inhalation, Every 4 hours, PRN, # 8.5 Gm, Refills 0, Maintenance, 03/31/19 10:15:00 EDT, Aerosol Start Date: 03/31/19 Status: Ordered Toradol Inj 10 mg, Injection, IV Push Slowly, Once, STAT, 10/26/22 10:55:00 EST, Stop date 10/26/22 10:55:00 EST Start Date: 10/26/22 Stop Date: 10/26/22 Status: Completed Zofran 4 mg oral tablet 1 tablet = 4 mg, By Mouth, Every 8 hours, 0 Refills, Maintenance, 08/26/21 7:27:00 EST, Partial fill upon patient request if the prescription is for a schedule II opioid drug. Start Date: 08/26/21 Status: Ordered Problem List Condition Confirmation Course Effective Dates Status Health St atus Informant Obese class I Confirmed Active Tear of meniscus of right knee Confirmed Active Vital Signs Most recent to oldest [Reference Range]: 1 2 3 Height 158 cm (10/26/22 12:31 PM) 158 cm (10/26/22 8:59 AM) Weight 83.6 kg (10/26/22 12:31 PM) 83.6 kg (10/26/22 8:59 AM) Oxygen Saturation [94-100 %] 99 % (10/26/22 12:31 PM) 100 % (10/26/22 8:59 AM) Pulse Rate [55-90 bpm] 76 bpm (10/26/22 12:31 PM) 95 bpm *H* (10/26/22 8:59 AM) Body Mass Index [18.5-24.99 kg/m2] 33.49 kg/m2 *>HHI* (10/26/22 12:31 PM) Blood Pressure [90-138/55-84 mm Hg] 101/60mm Hg (10/26/22 12:31 PM) 96/62mm Hg (10/26/22 8:59 AM) Respiratory Rate [16-30 br/min] 20 br/min (10/26/22 12:31 PM) 18 br/min (10/26/22 11:55 AM) 20 br/min (10/26/22 11:22 AM) Temperature [96.8-100.4 DegF] 97.3 DegF (10/26/22 12:31 PM) 98.5 DegF (10/26/22 8:59 AM) Mode of Delivery (Oxygen) Room air (10/26/22 12:31 PM) Room air (10/26/22 8:59 AM) Blood pressure sites Arm, right (10/26/22 12:31 PM) Temperature Route Temporal (10/26/22 12:31 PM) Temporal (10/26/22 8:59 AM) Dry Weight 83.6 kg (10/26/22 12:31 PM) 83.6 kg (10/26/22 8:59 AM) Social History Social History Type Response Smoking Status Never (less than 100 in lifetime) entered on: 05/04/19 Sex Note * Howard GABRIEL, Criselda E: PERFORM Event Display: Patient Education Leaflets Authored Date: [id number] Diet for Vomiting or Diarrhea (Adult) ?? [id number] Dieta para el v??lorie o la diarrea (Adulto) Si jero s??ntomas regresan o empeoran despu??s de comer ciertos alimentos que se enumeran a continuaci??n. Debe dejar de comerlos hasta que se alivien los s??ntomas y usted se sienta mejor. Maribel vez que pare el v??lorie, siga los siguientes pasos.?? Liliam las primeras 12 a 24 horas Liliam las primeras 12 a 24 horas, siga esta dieta: ??? Bebidas.??Rhome agua, bebidas deportivas (wayne soluciones de electrolitos), bebidas sin cafe??na, agua mineral (com??n o saborizada) y jugos defruta shabnam. No tome bebidas con cafe??na o jugos c??tricos. Estos se debe a que estos contienen alto contenido de ??cido y pueden irritarle el est??mitchell. ??? [place]. Rhome caldos shabnam. ??? Postres.Coma gelatina fabricio, helados de jugo congelado y barras de jugo de frutas sin trozos de fruta. A medida que se sienta mejor, puede agregar entre??177 y 236??ml (entre??6 y 8??onzas) de yogur por d??a.Si tiene diarrea, no consuma alimentoso o bebidas con az??car, alto contenido de fructosa con jarabe, o bebidas alcoh??licas con az??car. ?? Liliam las siguientes 24 horas: Liliam las siguientes 24??horas, puede agregar lo siguiente: ??? Cereal caliente, baig eloy simple, baig, panecillos y galletas saladas ??? Fideos simples, arroz, pur?? de oscar y sopa de keisha con fideos o arroz ??? Fruta enlatada sin endulzar (que no sea pi??a) y bananas Limite el consumo de grasas a menos de 15 gramos por d??a. Evite margarinas, manteca, aceites, mayonesa, salsas, condimentos, comidas fritas, mantequilla de man??, carne de res, keisha y pescado. No coma alimentos con demasiada fibra. Evite las verduras crudas o cocidas, frutas frescas (exceptobananas) y cereales de salvado. Limite la cafe??na y el chocolate. No use condimentos ni especias con excepci??n de la kylie. ?? Liliam las siguientes 24 horas: Gradualmente retome la dieta normal a medida que se sienta mejor y desaparezcan los s??ntomas. ?? Last Reviewed Date: 2022 ?? [employer]. Todos los derechos reservados. Esta informaci??n no pretende sustituir la atenci??n m??dica profesional. S??lo polo m??dico puede diagnosticar y tratar un problema de sarah. ?? * Howard GABRIEL, Criselda E: PERFORM Event Display: Patient Education Leaflets Authored Date: [id number] Ondansetron Oral Tablet ?? [id number] Ondansetron Oral Tablet Brands: Zofran Usos Para n??useas o v??mitos. ?? Instrucciones Mantenga el medicamento a temperatura ambiente, alejado jenna y el calor. Informe a polo m??dico si suda, tiene diarrea o vomita mucho o continuamente. Pueden aumentar polo riesgo de tener un efecto secundario grave. Si utiliza gregorio medicamento regularmente, es importante que utilice cada dosis a la hora indicada. Siga utilizando el medicamento incluso si se siente salvador. Si olvida sebastián maribel dosis a tiempo, t??meghan delgado pronto lo recuerde. Si es get la hora de la dosis siguiente, no tome la dosis olvidada. Vuelva al horario normal. No tome dos dosis al mismo tiempo. Las interacciones con otros medicamentos pueden cambiar la forma en que act??an los medicamentos o aumentar el riesgo de presentar efectos secundarios. Informe a jero profesionales sanitarios acerca de todos los medicamentos que usa. [place] incluye medicamentos con y sin receta m??dica, vitaminas y medicamentos a base de hierbas. Hable con polo m??dico o farmac??utico antes de empezar o dejar de usar cualquier medicamento. Informe a polo m??dico si jero s??ntomas no mejoran o si empeoran. Es muy importante que asista a todas las citas para evaluaciones y pruebas m??dicas mientras usa gregorio medicamento. ?? Precauciones Informe a polo m??dico y a polo farmac??utico si alguna vez weiss tenido maribel reacci??n al??rgica a un medicamento. Algunos pacientes que allan esta medicina alfredo experimentado graves efectos secundarios. Hable con polo m??dico para entender los riesgos y los beneficios relacionados con esta medicina. No use el medicamento m??s veces de lo indicado. Consulte a polo m??dico antes de beber alcohol mientras usa gregorio medicamento. Llame al m??dico si hay alguna se??al de confusi??n o cambios extra??os de conducta. Informe a polo m??dico o farmac??utico si est?? o planea quedar embarazada, o si est?? amamantando. No tome hierba de Gertrudis mientras use gregorio medicamento. No comparta gregorio medicamento con otras personas a quienes no se les recet??. ?? Efectos Secundarios La siguiente es maribel lista de algunos efectos secundarios comunes de gregorio medicamento. Hable con el m??dico para saber qu?? debe hacer en ramana de tener estos u otros efectos secundarios. ??? estre??imiento ??? mareos o aturdimiento ??? falta de energ??a y cansancio ??? skyler de keri Llame al m??dico u obtenga atenci??n m??dica de inmediato si nota cualquiera de estos efectos secundarios m??s graves: ??? sensaci??n de agitaci??n o dificultad para dormir ??? p??rdida de equilibrio ??? diarrea ??? desmayo ??? fiebre ??? alucinaciones (pensamientos extra??os, raquel u o??r cosas que no son reales) ??? latidos del coraz??n acelerados o irregulares ??? skyler musculares, espasmos o movimientos anormales ??? temblor muscular ??? dolor de est??mitchell ??? visi??n borrosa o cambios en la visi??n ??? v??lorie intenso o persistente Algunas personas podr??an tener reacciones al??rgicas a gregorio medicamento. Entre los s??ntomas pueden incluirse: dificultad para respirar, erupci??n en la piel, comez??n, hinchaz??n o mareos intensos.Si nota algunos de estos s??ntomas, busque asistencia m??dica r??pidamente. ?? Extra Hable con polo m??dico, enfermero o farmac??utico si tiene alguna pregunta acerca de gregorio medicamento. ?? [email or web address] NOTA IMPORTANTE: En gregorio documento hay maribel explicaci??n breve sobre c??mo usar el medicamento, perono incluye todo lo que hay que saber acerca del medicamento. Polo m??dico o polo farmac??utico podr??a suministrarle otros documentos acerca de polo medicamento. Comun??quese con ellos si tiene alguna pregunta. Siga siempre jero consejos. Maribel descripci??n m??s completa de gregorio medicamento est?? disponibleen ingl??s. Escanee gregorio c??digo en polo tel??fono inteligente o en polo tableta, o use la direcci??n web que aparece a continuaci??n. Tambi??n puede pedirle a polo farmac??utico maribel copia impresa. Si tiene alguna pregunta, h??gasela a polo farmac??utico. La exhibici??n y el uso de esta informaci??n sobre f??rmacos est?? sujeta a los T??rminos de Uso. Copyright(c) 2021 [employer]. ?? [id number] [employer]. All rights reserved. This information is not intended as a substitute for professional medical care. Always follow your healthcare professional's instructions. ?? Patient Care team information Care Team Personnel Name: Diego Gordillo Position: [facility] Outreach Member Role: Lifetime Consulting Physician Name: Jo Higuera MD Position: [facility] Outreach Member Role: PCP Address: Address: [address] [place] [address]- Name: Jerzy Urbina Position: [facility] ED TA [facility] Member Role: Mobile Designer Name: Criselda Lawrence MD Position: [facility] ED Medicine MD Member Role: Admitting Physician Address: Address: [address] [place] [address]- [place] Name: Isabel Curiel RN Position: [facility] ED RN W/OE and Tasks Member Role: Patient Care Provider Care Team Related Persons Name: SANDRA MENSAH Address: home [address] [place] [address] Name: CECELIA GLEASON Address: home [address] [place] [address]
--- OUTSIDE RECORDS SUMMARY | 2023-08-11 15:19 | XMS_ITS | Continuity of Care Document ---
Author Name Unknown Organization [facility] Address [address] [place] [address]- Care Team Providers Care Records Section Supervisor Name Role Phone Jo Higuera MD Primary Care Physician Encounter [facility] Date(s): 04/08/23 - 05/15/23 [facility] [address] [place] [address]- [place] Encounter Diagnosis Encounter for screening colonoscopy(Discharge Diagnosis) - 04/15/23 Attending Physician: Tarun Petersno MD Admitting Physician: Tarun Peterson MD Referring Physician: Jo Higuera MD Allergies, Adverse Reactions, Alerts No Known Allergies Medications albuterol CFC free 90 mcg/inh inhalation aerosol 2, puffs, Inhalation, Every 6 hours, PRN, # 8.5 Gm, Refills 0, Tot. Refills 0, Maintenance, 12/11/22 20:33:00 EDT, Aerosol, Route to Pharmacy Electronically, [id number][id number], 157, cm, 12/11/22 18:18:00 EDT, Height, 84.9,... Start Date: 12/11/22 Status: Ordered Butalbital 0 Refills, Maintenance, 08/26/21 6:49:00 EST, [...] 10/23/19 10:11:00 EST, Route to Pharmacy Electronically, [facility] [address], 157.48, cm, 07/23... Start Date: 10/23/19 Stop [...] 0 Refills, Maintenance, 10/26/22 10:56:00 EST, Tablet, [facility] #[id number], Partial fill upon patient requestif the prescription is for a schedule II opioid drug.,... Start Date: 10/26/22 Status: Ordered ProAir HFA 90 mcg/inh inhalation aerosol with adapter 1, puffs, Inhalation, Every 4 hours, PRN, # 8.5 Gm, Refills 0, Maintenance, 03/31/19 10:15:00 EDT, Aerosol Start Date: 03/31/19 Status: Ordered Zofran 4 mg oral tablet 1 tablet = 4 mg, By Mouth, Every 8 hours, 0 Refills, Maintenance, 08/26/21 7:27:00 EST, Partial fill upon patient request if the prescription is for a schedule II opioid drug. Start Date: 08/26/21 Status: Ordered Problem List Condition Confirmation Course Effective Dates Status Health St atus Informant Obese class I Confirmed Active Encounter for screening colonoscopy Confirmed Active Tear of meniscus of right knee Confirmed Active Diagnosis Diagnosis Type Effective Dates Health Status Clinical Service Informant Encounter for screening colonoscopy Discharge Diagnosis 04/15/23 Social History Social History Type Response Smoking Status Former smoker, quit more than 30 days ago entered on: 12/11/22 Sex Patient Care team information Care Team Personnel Name: Diego Gordillo Position: [facility] Outreach Member Role: Lifetime Consulting Physician Name: Jo Higuera MD Position: [facility] Outreach Member Role: PCP Address: Address: [address] [place] [phone]- Care Team Related Persons Name: SANDRA MENSAH Address: home [address] [place] [address] Name: CECELIA GLEASON Address: home [address] [place] [id number]
--- OUTSIDE RECORDS SUMMARY | 2023-08-11 15:19 | XMS_ITS | Continuity of Care Document ---
Author Name Unknown Organization [facility] Address [address] [place] [address]- Care Team Providers Care Road Sign Installer Name Role Phone Jo Higuera MD Primary Care Physician [phone] [id number]): [facility] - 10/31/[address] [address] [facility] Discharge Disposition: A-D/C Walkout Attending Physician: Not on Staff, Attending MD Admitting Physician: Not on Staff, Admitting MD Referring Physician: Not on Staff, Referring MD Allergies, Adverse Reactions, Alerts Substance Reaction Severity Status NKA Active Medications famotidine 20 mg oral tablet 20 mg, 1, tablet, By Mouth, 2 times a day, avoid eating and drinking for 10 minutes after each dose, # 28 tablet, Refills 0, Tot. Refills 0, Soft Stop, 10/23/19 10:11:00 EST, Route to Pharmacy Electronically, [address], 157.48, cm, 07/23... Start Date: 10/23/19 [...] recent to oldest [Reference Range]: 1 2 Oxygen Saturation [94-100 %] 100 % (10/31/19 1:10 PM) 100 % (10/31/19 12:43 PM) Pulse Rate [55-90 bpm] 69 bpm (10/31/19 1:10 PM) 71 bpm (10/31/19 12:43 PM) Blood Pressure [90-138/55-84 mm Hg] 110/ 58mm Hg (10/31/19 1:10 PM) Respiratory Rate [16-30 br/min] 15 br/mi n *L* (10/31/19 1:10 PM) Temperature [96.8-100.4 DegF] 98.7 DegF (10/31/19 1:10 PM) Mode of Delivery (Oxygen) Room air (10/31/19 1:10 PM) Room air (10/31/19 12:43 PM) Blood pressure sites Arm, left (10/31/19 1:10 PM) Temperature Route Oral (10/31/19 1:10 PM) Dry Weight 79 kg (10/31/19 1:10 PM) Social History Social History Type Response Smoking Status Never (less than 100 in lifetime) entered on: 05/04/19 Sex
--- OUTSIDE RECORDS SUMMARY | 2023-08-11 15:19 | XMS_ITS | Continuity of Care Document ---
Author Name Unknown Organization [facility] al Address [address] [place] [address]- Care Team Providers Care Lead Infrastructure Architect Name Role Phone Jo Higuera MD Primary Care Physician [phone] Encounter [facility] Date(s): 08/26/22 - 08/26/[address] [address]- Discharge Disposition: A-D/C Home Attending Physician: Murali Ibarra MD Admitting Physician: Murali Ibarra MD Referring Physician: Not on Staff, Referring MD Allergies, Adverse Reactions, Alerts No Known Allergies Medications Aspirin Enteric Coated 325 mg oral delayed release tablet 1 tablet = 325 mg, By Mouth, Daily, 0 Refills, Maintenance, 08/26/21 7:26:00 EST, Partial fill uponpatient request if the prescription is for a schedule II opioid drug. Start Date: 08/26/21 Status: Ordered Azithromycin 5 Day Dose Pack 250 mg oral tablet 1 pack/packet, By Mouth, Once, # 6 tablet, 0 Refills, Soft Stop, 08/26/22 13:23:00 EST, Tablet, [facility] #[id number], Partial fill upon patient request if the prescription is for a schedule IIopioid drug., 158, cm, 08/26/22 12:35:00 EST, Heigh... Start Date: 08/26/22 Status: Ordered Butalbital 0 Refills, Maintenance, 08/26/21 [...] to Pharmacy Electronically, [facility], 157.48, cm, 07/23... Start Date: 10/23/19 Stop Date: 11/06/19 Status: Ordered ibuprofen 800 mg oral tablet 800 mg, 1, tablet, By Mouth, 3 times a day, PRN, Refills 0, Maintenance, Pain , Moderate, 08/10/19 9:14:04 EST Start Date: 08/10/19 Status: Ordered naproxen 500 mg oral tablet 1 tablet = 500 mg, By Mouth, 2 times a day, 0 Refills, Maintenance, 08/26/21 7:26:00 EST, Tablet, Partial fill upon patient request if the prescription is for a schedule II opioid drug. Start Date: 08/26/21 Status: Ordered oxyCODONE 5 mg oral tablet 5 mg, 1, tablet, By Mouth, Every 4 hours, Refills 0, Tot. Refills 0, Maintenance, 08/26/21 7:27:00 EST, Partial fill upon patient request if the prescription is for a schedule II opioid drug. Start Date: 08/26/21 Status: Ordered ProAir HFA 90 mcg/inh inhalation [...] of meniscus of right knee Confirmed Active Results Radiology Reports * Exam Date Time Procedure Performing Provider Status 08/26/22 11:54 AM Chest 2 Views Frontal and Lat Nathans on , Nadia; Auth (Verified) Notes: (Chest 2 Views Frontal and Lat) Reason For Exam: Cough RESULT: Chest 2 Views Frontal and Lat Chest 2 Views Frontal and Lat History of Present Illness: Cough, fatigue, chest congestion x 1 week; also reports right sided neck pain. Reason: Cough; Clinical Question(s): Pneumonia. COMPARISON: 09/23/2018. FINDINGS: LINES AND TUBES: None. LUNGS AND PLEURA: Clear lungs. Normal pulmonary vascularity. No pleural effusion. No pneumothorax. HEART, MEDIASTINUM AND ELISEO: Heart is normal in size. Normal mediastinal and hilar contour. BONES AND SOFT TISSUES: No acute abnormality. IMPRESSION: No evidence of acute abnormality. I have personally reviewed the images and I agree with this report. WSN: [id number] Ordering Physician: Nate Augustin Dictated By: Medhat Cheung MD Dictated Date/Time: 08/26/22 12:03 p Reviewed By: Aguilar Remy MD Signed By: Aguilar Remy MD Signed Date/Time: 08/26/22 12:08 pm Transcribed By: ROSMERY Transcribed Date/Time: 08/26/22 11:59 am Vital Signs Most recent to oldest [Reference Range]: 1 2 3 Height 158 cm (08/26/22 12:35 PM) 158 cm (08/26/22 10:02 AM) 158 cm (08/26/22 10:00 AM) Weight 83 kg (08/26/22 10:02 AM) 83 kg (08/26/22 10:00 AM) Oxygen Saturation [94-100 %] 100 % (08/26/22 12:35 PM) 100 % (08/26/22 10:00 AM) Pulse Rate [55-90 bpm] 70 bpm (08/26/22 12:35 PM) 84 bpm (08/26/22 10:00 AM) Body Mass Index [18.5-24.99 kg/m2] 33.25 kg/m2 *>HHI* (08/26/22 10:00 AM) Blood Pressure [90-138/55-84 mm Hg] 123/70mm Hg (08/26/22 12:35 PM) 114/71mm Hg (08/26/22 10:00 AM) Respiratory Rate [16-30 br/min] 18 br/min (08/26/22 12:35 PM) 20 br/min (08/26/22 10:00 AM) Temperature [96.8-100.4 DegF] 98.9 DegF (08/26/22 10:00 AM) Mode of Delivery (Oxygen) Room air (08/26/22 12:35 PM) Room air (08/26/22 10:00 AM) Blood pressure sites Arm, right (08/26/22 12:35 PM) Arm, right (08/26/22 10:00 AM) Temperature Route Temporal (08/26/22 10:00 AM) Dry Weight 83 kg (08/26/22 10:02 AM) 83 kg (08/26/22 10:00 AM) Weight Obtained Via Standing scale (08/26/22 10:00 AM) Dry Weight Obtained Via Standing scale (08/26/22 10:00 AM) Social History Social History Type Response Smoking Status Never (less than 100 in lifetime) entered on: 05/04/19 Sex Note * Murali Ibarra MD: PERFORM Event Display: Patient Education Leaflets Authored Date: [id number] Multiple Documents ?? [id number] Azithromycin Oral Tablet Brands: Zithromax Usos Para tratar maribel infecci??n bacteriana. ?? Instrucciones Puede tomarse con alimentos para prevenir molestias estomacales. Mantenga el medicamento a temperatura ambiente, alejado jenna y el calor. No tome gregorio medicamento con anti??cidos. Si olvida sebastián maribel dosis, t??meghan delgado pronto wayne se acuerde. Si es get hora de polo siguiente dosis, en lugar de sebastián la dosis olvidada vuelva a polo programa regular. No tome 2 dosis de gregorio medicamento a la vez. Las interacciones con otros medicamentos pueden cambiar la forma en que act??an los medicamentos o aumentar el riesgo de presentar efectos secundarios. Informe a jero profesionales sanitarios acerca de todos los medicamentos que usa. [place] incluye medicamentos con y sin receta m??dica, vitaminas y medicamentos a base de hierbas. Hable con polo m??dico o farmac??utico antes de empezar o dejar de usar cualquier medicamento. Siga usando gregorio medicamento gera el n??benitez total de d??as que se lo recetaron. No deje de usarel medicamento, incluso si empieza a sentirse mejor. ?? Precauciones Informe a polo m??dico y a polo farmac??utico si alguna vez weiss tenido maribel reacci??n al??rgica a un medicamento. No use el medicamento m??s veces de lo indicado. D??gale a polo m??dico si tiene diarrea moderada a intensa mientras usa gregorio medicamento. No use medicamentos de venta gregorio (sin receta) para tratar la diarrea. Informe a polo m??dico o farmac??utico si est?? o planea quedar embarazada, o si est?? amamantando. No comparta gregorio medicamento con otras personas a quienes no se les recet??. ?? Efectos Secundarios La siguiente es maribel lista de algunos efectos secundarios comunes de gregorio medicamento. Hable con el m??dico para saber qu?? debe hacer en ramana de tener estos u otros efectos secundarios. ??? diarrea ??? n??useas y v??mitos ??? indigesti??n estomacal o dolor abdominal ??? infecci??n porc??ndida en la boca ??? picor en la vagina o infecci??n vaginal por c??ndida Llame al m??dico u obtenga atenci??n m??dica de inmediato si nota cualquiera de estos efectos secundarios m??s graves: ??? diarrea severa, acuosa o con gunner ??? problemas de o??do (tinnitus, p??rdida de la audici??n)??? desmayo ??? hinchaz??n en el lavelle o la garganta ??? latidos del coraz??n acelerados o irregulares ??? signos de da??o hep??danya (tales wayne ojos o piel amarillentos, orina oscura o cansancio inusual) ??? debilidad muscular ??? enrojecimiento, ardor o picaz??n en la piel ??? dolor intenso del est??mitchell o las v??as digestivas ??? visi??n borrosa o cambios en la [...] alguna pregunta acerca de gregorio medicamento. ?? [email or web address] NOTA IMPORTANTE: En gregorio documento hay maribel [...] a los T??rminos de [employer]. Copyright(c) 2021 1-800-DENTIST. ?? 3428-6908 [employer]. All rights reserved. This information is not intended as a substitute for professional medical care. Always follow your healthcare professional's instructions. ?? * Murali Ibarra MD: PERFORM Event Display: Patient Education Leaflets Authored Date: [id number] Multiple Documents ?? [id number] Bronquitis: con antibi??ticos (adultos) La bronquitis consiste en la inflamaci??n e hinchaz??n de las v??as respiratorias (tubos bronquiales) de los pulmones. Suele deberse a maribel infecci??n. Los s??ntomas incluyen tos seca y ??spera que empeora por la noche. La tos puede hacer que escupa mucosidad amarillo-verdosa. Tambi??n puede sentir falta de aire o silbidos. Otros s??ntomas son cansancio, malestar en el pecho, fiebre y escalofr??os. Esta enfermedad puede contagiarse a otras personas gera los primeros d??as. Se transmite por el aire, mediante la tos o el estornudo de la persona afectada. Tambi??n se contagia por contacto directo. Es decir, si toca a la persona enferma y despu??s se toca los ojos, la nariz o la boca. La causa principal de la bronquitis es un virus. Por lo general, esta afecci??n no se trata con antibi??ticos. Patric la bronquitis grave o cr??aiden se puede tratar con antibi??ticos. Puede que le administren otros medicamentos para aliviar los s??ntomas. Los s??ntomas pueden durar hasta 2??semanas. La tos puede durar m??s tiempo.?? Cuidados en el hogar Siga estas recomendaciones para cuidarse en polo casa: ??? Escalon el antibi??danya exactamente awyne le indicaron. No deje de tomarlo, incluso aunque se sienta mejor. Termine todo el antibi??danya.? Yenni s??ntomas son graves, descanse en polo casa gera los primeros 2-3??d??as. Cuando retome jero actividades habituales, evite cansarse demasiado. ??? No fume. Evite el tabaquismo pasivo. ??? Puede usar medicamentos de venta gregorio para controlar la fiebre o el dolor. O incluso puede usar otro medicamento seg??n le hayan indicado. Si tiene maribel enfermedad hep??jassi o renal cr??aiden, o tuvo alguna vez maribel ??lcera estomacal o sangrado en el est??mitchell o en los intestinos, consulte con el proveedor de atenci??n m??dica antes de sebastián estos medicamentos. Tambi??n hable con el proveedor si est?? tomando medicamentos para prevenir la formaci??n de co??gulos. [place] debe administrar aspirinas a personas menores de 18??a??os que tengan un virus o fiebre. Puede causar da??os graves en el h??gado o en el cerebro, o incluso la muerte. ??? El cuerpo necesita mucho l??quido ahora. Yuly de 6??a??8??vasosde l??quido por d??a. [place] incluye agua, refrescos, bebidas deportivas, jugos, t?? o sopa. Los l??quidos extras ayudar??n a que la mucosidad de la nariz y de los pulmones se afloje m??s f??cil. ??? Es posible que tenga poco apetito. Maribel dieta ligera es adecuada. ??? Los medicamentos de venta gregorio para tratar la tos, el resfr??o y el dolor de garganta no reducir??n la duraci??n de la enfermedad, patric pueden ayudar a aliviar los s??ntomas. No use descongestivos si tiene presi??n arterial merlene. ?? Visita de seguimiento Asista a los controles con polo proveedor de atenci??n m??dica seg??n le hayan indicado. Si le hicieron maribel radiograf??a o un electrocardiograma (ECG), le informar??n de los nuevos resultados de la prueba que puedan afectar la atenci??n m??dica que necesita. Pregunte al proveedor de atenci??n m??dica sobre las vacunas antineumoc??cicas y la vacuna antigripal anual. Existen 2??tipos de vacunas antineumoc??cicas. Es posible que necesite ambas. El riesgo deinfecci??n pulmonar es mayor si algo de lo siguiente corresponde a polo ramana: ??? Tiene 65??a??os o m??s ??? Tiene maribel enfermedad pulmonar cr??aiden ??? Tiene maribel afecci??n que afecta el sistema inmunitario ??? Fuma ?? Cu??ndo buscar atenci??n m??dica Llame de inmediato al proveedor de atenci??n m??dica si nota alguno de los siguientes s??ntomas: ??? Fiebre de 100.4?F (38?C) o superior ??? Tos con m??s mucosidad ??? Dolor en la miquel o de o??do ??? Debilidad leve, somnolencia, dolor de keri o rigidez en el lavelle ?? Cu??ndo llamar al?? 911 Llame al?? 911 si ocurre algo de lo siguiente: ??? Tos con gunner ??? Empeoramiento de la debilidad, la somnolencia, el dolor de keri o la rigidez en el lavelle ??? Dificultades para respirar, sibilancias o dolor al respirar ??? Color azulado, juan r o too en la piel o en los labios ??? Sensaci??n de muerte ?? Last Reviewed Date: 2021 ?? [id number] [employer]. Todos los derechos reservados. Esta informaci??n no pretende sustituir la atenci??n m??dica profesional. S??lo polo m??dico puede diagnosticar y tratar un problema de sarah. ?? * BHSPowerscribe , CIS S: TRANSCRIBE Jonel GABRIEL, Aguilar: VERIFY Jonatan GABRIEL, Medhat T: SIGN Event Display: Result: Authored Date: [id number] Chest 2 Views Frontal and Lat History of Present Illness: Cough, fatigue, chest congestion x 1 week; also reports right sided neck pain. Reason: Cough; Clinical Question(s): Pneumonia. COMPARISON: 09/23/2018. FINDINGS: LINES AND TUBES: None. LUNGS AND PLEURA: Clear lungs. Normal pulmonary vascularity. No pleural effusion. No pneumothorax. HEART, MEDIASTINUM AND ELISEO: Heart is normal in size. Normal mediastinal and hilar contour. BONES AND SOFT TISSUES: No acute abnormality. IMPRESSION: No evidence of acute abnormality. I have personally reviewed the images and I agree with this report. WSN: [id number] Ordering Physician: Nate Augustin Dictated By: Medhat Cheung MD Dictated Date/Time: 08/26/22 12:03 p Reviewed By: Aguilar Remy MD Signed By: Aguilar Remy MD Signed Date/Time: 08/26/22 12:08 pm Transcribed By: ROSMERY Transcribed Date/Time: 08/26/22 11:59 am Patient Care team information Care Team Personnel Name: Diego Gordillo Position: [facility] Outreach Member Role: Lifetime Consulting Physician Name: Jo Higuera MD Position: [facility] Outreach Member Role: PCP Address: Address: [address] [place] [id number] Name: Murali Ibarra MD Position: [facility] ED Medicine MD Member Role: Admitting Physician Address: Address: [address] [place] [id number] Name: Rosario Pleitez Position: [facility] ED TA [facility] Member Role: Patient Care Provider Name: Randolph Grey Position: [facility] ED RN W/OE and Tasks Member Role: Patient Care Provider Care Team Related Persons Name: SANDRA MENSAH Address: home [address] [place] [address] Name: CECELIA GLEASON Address: home [address] [place] [address]
--- OUTSIDE RECORDS SUMMARY | 2023-08-11 15:19 | XMS_ITS | Continuity of Care Document ---
Author Name Unknown Organization [facility] Address [address] [place] [address]- Care Team Providers Care Launchman Name Role Phone Jo Higuera MD Primary Care Physician Encounter [facility] R [id number] Date(s): 01/15/23 - 05/15/23 [facility] [address] [place] [address]- Attending Physician: Tarun Peterson MD Admitting Physician: Tarun Peterson MD Referring Physician: Jo Higuera MD Allergies, Adverse Reactions, Alerts No Known Allergies Medications albuterol CFC free 90 mcg/inh inhalation aerosol 2, puffs, Inhalation, Every 6 hours, PRN, # 8.5 Gm, Refills 0, Tot. Refills 0, Maintenance, 12/11/22 20:33:00 EDT, Aerosol, Route to Pharmacy Electronically, [id number][id number], 157, cm, 12/11/22 18:18:00 EDT, Height, 84.9,... [...] to Pharmacy Electronically, [facility] [address], 157.48, cm, 07/23... Start Date: 10/23/19 [...] 0 Refills, Maintenance, 10/26/22 10:56:00 EST, Tablet, [facility][id number], Partial fill upon patient requestif the prescription [...] of meniscus of right knee Confirmed Active Social History Social History Type Response Smoking Status Former smoker, quit more than 30 days ago entered on: 12/11/22 Sex Patient Care team information Care Team Personnel Name: Diego Gordillo Position: [facility] Outreach Member Role: Lifetime Consulting Physician Name: Jo Higuera MD Position: [facility] Outreach Member Role: PCP Address: Address: [address] [place] [address]- Care Team Related Persons Name: SANDRA MENSAH Address: home [address] [place] [address] Name: CECELIA GLEASON Address: home [address] [place] [address]
--- NOTE | 2023-08-11 15:27 | A.OFFVIS_ITS ---
Intake Vital Signs 08/11/23 15:29 Height 5 ft 2 in Weight 180 lb BMI 32.9 BP 102/66 Intake Visit Reasons: U/S follow up Newspaper Stuffer Required: No Allergies No Known Allergies Allergy (Verified 08/11/23 15:30) Is last menstrual period known: Yes Last menstrual period: 07/27/23 Post menopausal: No HPI HPI Comments History of Present Illness Details Presenting complaining of right lower quadrant pain associated with some nausea , no vomiting, no abnormal uterine bleeding or vaginal discharge. No other GI or symptoms. Her pain has improved today. No fever or chills. Pelvic ultrasound done yesterday showed the following: The uterus is of normal size and echogenicity measuring 8.9 x 4.8 x 5.7 cm. A regular homogeneous endometrium is identified measuring 1.4 cm. Nabothian cysts in the cervix. Multiple uterine myomas including a 2 cm subserosal myoma in the posterior body, previously 1.6 cm, a 1.4 similar subserosal myoma in the right body, previously 1.4 cm and a new 8 mm intramural myoma in the right body of uterus. Both ovaries are of normal size and echogenicity. The right measures 3.1 x 1.6 x 2.9 cm for a volume of 7.5 m L. The left measures 2.7 x 2.1 x 1.6 cm for a volume of 4.8 mL. Resolution of the previously seen left hemorrhagic corpus luteum. There is small volume simple pelvic free fluid. In addition the patient is complaining of a right vulvar sore that is tender that appeared few days ago, no history of herpes PFSH Medical History Dysplasia of cervix, low grade (BENNIE 1) Right knee meniscal tear Asthma Anemia Migraines Surgical History History of knee surgery History of carpal tunnel surgery of right wrist History of tubal ligation Family History Unknown No problems noted. Mother HTN (hypertension) Maternal Aunt Diabetes Mother Murmur Asthma Migraines Household Members: Children Housing: [facility] Are you a primary care director rn to a significant other at home: Yes Do you presently have visiting nurse or other home services: No Alcohol intake: current Alcohol intake frequency: holidays/special occasions only Patient Tobacco Use Status: Former Tobacco user Quit Date: 2000 Tobacco use type: Cigarette service: No Current occupational status: employed Sexual orientation: Straight/Heterosexual Gender identity: Female Female Reproductive History Menstrual Age of Menarche: 12 Date of last menstrual period: 07/27/23 control method: permanent sterilization Date of last pap smear: 04/28/23 (negative) Review of Systems Const All systems reviewed & are unremarkable except as noted in HPI and below Reports as per HPI and Reports no additional complaints GI Reports no additional complaints Reports no additional complaints Physical Exam Vital Signs: Last Vital Signs BP 102/66 08/11/23 15:29 BMI result Body Mass Index 32.9 General: Yes no CVA tenderness External Female Exam: normal appearance of the urethra and other (Right posterior vulva of 1 cm tender ulcer) Speculum Exam - Vagina: normal appearance of the vagina, normal palpation, no lesions and no masses Speculum Exam - Cervix: normal appearance of the cervix, normal palpation, no lesions, no masses and nontender Bimanual exam- vagina & uterus: normal bimanual exam, normal palpation, uterine size normal, normal palpation, uterine shape normal, No Cervical tenderness present and non-tender Bimanual Exam- Adnexa, other: normal adnexae Back/Spine/Pelvis Back: no CVA tenderness Assessment & Plan Assessment & Plan (1) Pelvic pain: Code(s): R10.2 - Pelvic and perineal pain Plan: Urine test and urine dip done in the office both were negative. GC and CT taken. Discussed with the patient the finding on ultrasound . Instructions given the patient to call or go to emergency room in case the pain persist its worse any nausea or vomiting temperature above 100.4 Instructions given the patient to schedule a 2 week EMB appointment complete the workup for AUB (2) Vulvar ulcer: Code(s): N76.6 - Ulceration of vulva Plan: Discussed with the patient the findings on pelvic exam showing a tender vulvar ulcer, differential diagnosis includes but not limited to herpes. Herpes culture taken, instructions given the patient to schedule a 2 week re-inspection of the vulva if persistent will biopsy to rule out SHILPI. All questions answered, the patient verbalized understanding Coding Level of Care Code Est Pt Level 3 (74887) Diagnoses Pelvic pain R10.2 Vulvar ulcer N76.6
[2023-08-11 15:29] VITALS: BP 102/66; BMI 32.9
== END 2023-08-11 16:17 | disposition home or self-care (01) ==
LOC: HO.HWS 15:17
PROVIDERS: PCP Student in an Organized Health Care Education/Training Program; Visit Provider Obstetrics & Gynecology
DX: R10.2 Pelvic and perineal pain (principal); N76.6 Ulceration of vulva
CPT/HCPCS: 99213

== ENCOUNTER 2023-08-11 15:17 | Outpatient (REF) | payer MEDICAID, SELFPAY ==
[2023-08-12 03:10] LABS: CT PCR NOT DETECTED (Not Detect.); NG PCR NOT DETECTED (Not Detect.)
== END 2023-08-11 15:18 | disposition home or self-care (01) ==
LOC: HO.LNP 15:17
PROVIDERS: PCP Student in an Organized Health Care Education/Training Program; Visit Provider Obstetrics & Gynecology
DX: R10.2 Pelvic and perineal pain (principal); N76.6 Ulceration of vulva
CPT/HCPCS: 0353U; 87255; 99212

== ENCOUNTER 2024-01-01 13:03 | Outpatient (REF) | payer MEDICAID, SELFPAY ==
--- NOTE | ~2024-01-01 | XR_ITS ---
EXAMINATION: XR ELBOW, LEFT CLINICAL INFORMATION: Left lateral epicondylitis COMPARISON: None available. TECHNIQUE: AP, lateral, and oblique views of the left elbow. FINDINGS: The bones are intact. There is mild soft tissue swelling over the olecranon. No fracture or joint effusion. Alignment is anatomic. Joint spaces are maintained. There is a tiny calcific density adjacent to the lateral epicondyle which could be related to tendinosis. XR/XR elbow LT min 3V IMPRESSION: 1. Mild soft tissue swelling over the olecranon. 2. Tiny calcific density adjacent to the lateral epicondyle could be related to tendinosis.
--- NOTE | ~2024-01-01 | XR_ITS ---
EXAMINATION: XR SHOULDER, LEFT CLINICAL INFORMATION: Pain in shoulder. COMPARISON: None available. TECHNIQUE: AP external rotation, Grashey, scapular Y, and axillary views of the left shoulder. FINDINGS: The bones and soft tissues are normal. No fracture. Glenohumeral and acromioclavicular alignment is anatomic with normal joint space. No abnormal soft tissue calcifications. XR/XR shoulder LT min 2V IMPRESSION: No bony abnormality.
== END 2024-01-01 13:04 | disposition home or self-care (01) ==
LOC: HO.XRAY 13:03
PROVIDERS: Visit Provider Family Medicine
DX: M77.12 Lateral epicondylitis, left elbow (principal); M25.512 Pain in left shoulder
CPT/HCPCS: 73030; 73080

== ENCOUNTER 2024-01-21 10:03 | Outpatient (AMB) | payer MEDICAID, SELFPAY ==
--- NOTE | 2024-01-21 10:12 | A.OFFVIS_ITS ---
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 Patient reports that she had left shoulder pain radiating to her elbow and hand for about 2 months now with no injury. Her pcp provided her with Diclofeac Gel and Naproxen. She expresses her 3rd, 4th, and 5th digits have numbness and tingling at all times, at night time is when she says it is at its worse. She occasionally notices swelling in those digits and lateral aspect of elbow. She expresses lifting, grasping, and gripping exacerbates her pain in her left elbow and left hand. Shoulder pain comes when she overuses her arm. She has tried and failed a brace and injections for her hand. She is not interested in injections and is looking for other alternatives. [facility] Medical History Dysplasia of cervix, low grade (BENNIE 1) Right knee meniscal tear Asthma Anemia Migraines Surgical History History of knee surgery History of carpal tunnel surgery of right wrist History of tubal ligation Family History Unknown No problems noted. 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 Mild soft tissue swelling over the olecranon. 2. Tiny calcific density adjacent to the lateral epicondyle could be related to tendinosis. Assessment & Plan Assessment & Plan (1) Lateral epicondylitis of left elbow: Code(s): M77.12 - Lateral epicondylitis, left elbow Category: Medical Plan: Counter force brace and OT Orders: Orders OT Evaluation and Treatment Today M77.12 - Lateral epicondylitis, left elbow Coding Level of Care Code New Pt Level 3 (97473) Diagnoses Lateral epicondylitis of left elbow M77.12
[2024-01-21 10:14] VITALS: BMI 32.9
== END 2024-01-21 10:47 | disposition home or self-care (01) ==
PROVIDERS: PCP Student in an Organized Health Care Education/Training Program; Referring Provider Student in an Organized Health Care Education/Training Program; Visit Provider Orthopaedic Surgery
DX: M77.12 Lateral epicondylitis, left elbow (principal)
CPT/HCPCS: 99203

== ENCOUNTER → 2024-01-21 10:03 | Outpatient (BNVA) | payer MEDICAID, SELFPAY | PROVIDERS: PCP Student in an Organized Health Care Education/Training Program; Visit Provider Orthopaedic Surgery | DX: M77.12 Lateral epicondylitis, left elbow (principal) | CPT/HCPCS: 99202 ==

== ENCOUNTER 2024-03-16 11:47 | Outpatient (REF) | payer MEDICAID, SELFPAY ==
[2024-03-16 11:59] LABS: MANUAL DIFF FLAG NO
[2024-03-16 12:19] LABS: Basophils Absolute Auto 0.1 X10*3/uL (0.0-0.2); Basophils Percent Auto 1.1 % (0-2); Eosinophils Absolute Auto 0.1 X10*3/uL (0.0-0.4); Eosinophils Percent Auto 1.8 % (0-4); Hematocrit 39.1 % (37.0-47.0); Hemoglobin 11.9 g/dl (12.0-16.0); Imm Gran Abs Auto 0.01 X10*3/uL (0.00-0.03); Imm Gran Pct Auto 0.2 % (0.0-0.4); Lymphocytes Absolute Auto 2.1 X10*3/uL (1.2-4.9); Lymphocytes Percent Auto 36.4 % (20-40); Mean Corpuscular HGB Conc 30.4 g/dl (31.0-35.0); Mean Corpuscular Hemoglobin 24.5 pg (27.0-33.0); Mean Corpuscular Volume 80.6 fL (80.0-98.0); Mean Platelet Volume 10.5 fL (9.4-12.3); Monocytes Absolute Auto 0.5 X10*3/uL (0.1-1.2); Monocytes Percent Auto 8.6 % (2-11); Neutrophils Percent Auto 51.9 % (45-73); Platelet Count 236 X10*3/uL (160-400); Red Blood Count 4.85 X10*6/uL (4.20-5.50); Red Cell Distribution Width 14.6 % (11.0-16.0); White Blood Count 5.7 X10*3/uL (4.8-10.8)
[2024-03-16 12:43] LABS: Alanine Aminotransferase 20 U/L (0-31); Albumin Level 4.1 g/dL (3.5-5.0); Alkaline Phosphatase 57 U/L (39-117); Aspartate Amino Transferase 20 U/L (5-31); Bilirubin Direct < 0.2 mg/dL (0.0-0.5); Bilirubin Total 0.2 mg/dL (0.0-1.0); Lipase 21 U/L (8-78); Total Protein 7.2 g/dL (6.5-8.0)
== END 2024-03-16 11:48 | disposition home or self-care (01) ==
LOC: HO.LAB 11:47
PROVIDERS: PCP Student in an Organized Health Care Education/Training Program; Visit Provider Internal Medicine Gastroenterology
DX: R10.13 Epigastric pain (principal); K29.80 Duodenitis without bleeding
CPT/HCPCS: 36415; 80076; 83690; 85025

== ENCOUNTER → 2024-04-04 07:40 | Outpatient (REF) | payer MEDICAID, SELFPAY ==
--- NOTE | ~2024-04-04 | NM_ITS ---
EXAMINATION: BILIARY TRACT IMAGING STUDY WITH CCK CLINICAL INFORMATION: Epigastric pain. COMPARISON: CT of the abdomen and pelvis done on 10/09/2022.. TECHNIQUE: Serial gamma scintillation camera images were obtained over the abdomen for a total observation period of 60 minutes following the intravenous administration of 5.0 mCi Tc-99m mebrofenin. FINDINGS: There is good concentration of activity in the liver by 5 minutes post injection. Biliary activity is visualized by 10 minutes. The gallbladder is well visualized by 20 minutes. Small bowel is well visualized by 44 minutes. At 60 minutes post radiopharmaceutical injection, a 30-minute infusion of 1.63 micrograms Sincalide was then begun and an additional 40 minutes of images were obtained. There is good emptying of the gallbladder. By the end of the study there is good clearance of activity from the liver and visualization of diffuse small bowel activity. The calculated gallbladder ejection fraction is 60% (Normal range of gallbladder ejection fraction is between 35-80%; GBEF <35% is considered biliary hypokinesia and >80% is considered biliary hyperkinesia; Ref. #1-Clinical Journal of Gastroenterology (2020) 14:1308?1317; Ref.#2-[email or web address]). NM/NM hepatobiliary w pharm IMPRESSION: Visualization of the gallbladder is evidence of a patent cystic duct and strong evidence against the diagnosis of acute cholecystitis. The common bile duct is patent. Gallbladder emptying and ejection fraction are normal. Liver function appears normal.
== END ==
LOC: HO.NUCMED 07:40
PROVIDERS: PCP Student in an Organized Health Care Education/Training Program; Visit Provider Internal Medicine Gastroenterology
DX: R10.13 Epigastric pain (principal)
CPT/HCPCS: 78227; A9537; J2805

== ENCOUNTER 2024-09-08 14:28 | Outpatient (AMB) | payer MEDICAID, SELFPAY ==
[2024-09-08 14:29] VITALS: BP 118/70; BMI 32.9
--- NOTE | 2024-09-08 14:29 | A.OFFVIS_ITS ---
Vital Signs 09/08/24 14:29 Height 5 ft 2 in Weight 180 lb BMI 32.9 BP 118/70 Intake Visit Reasons: fibroids Allergies Seasonal Allergies Allergy (Severe, Verified 01/21/24 10:21) Sneezing HPI Comments Details: The patient is presenting c/o heavy menstrual cycles associated with passage of blood clots and abdominal cramping. The patient has been on tranexamic acid last 2 months her period has been very heavy associated with pelvic cramping Last co testing was in 05/13 was negative [facility] Medical History Dysplasia of cervix, low grade (BENNIE 1) Right knee meniscal tear Asthma Anemia Migraines Surgical History History of knee surgery History of carpal tunnel surgery of right wrist History of tubal ligation Family History Unknown No problems noted. 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 Sexual orientation: Straight/Heterosexual Gender identity: Female Female Reproductive History Menstrual Age of Menarche: 12 Review of Systems Const All systems reviewed & are unremarkable except as noted in HPI and below Card Reports as per HPI Resp Reports as per HPI GI Reports as per HPI and Reports no additional complaints Reports as per HPI Physical Exam Const General: cooperative, healthy appearing and comfortable Chest Chest palpation & inspection: normal inspection of the chest and normal palpation of entire chest wall Breast/axilla inspection: normal inspection of the breasts and normal inspection of the axillae Breast/axilla palpation: normal palpation of the breasts, normal palpation of the axillae and no axillary lymphadenopathy Resp Effort & Inspection: normal respiratory effort Auscultation: clear to auscultation bilaterally Percussion: percussion normal Cardio Palpation: normal PMI Rate: regular rate Rhythm: regular rhythm Heart sounds: no murmurs and no rubs Peripheral pulses: Peripheral pulses 2+ throughout GI Inspection: Yes normal to inspection Palpation (GI): Soft to palpation, nontender, no guarding, not rigid and No hepatosplenomegaly present Percussion: Yes normal to percussion Auscultation: normal bowel sounds Rectal Exam - Female: deferred General: Yes bladder normal to palpation External Female Exam: No lesion Speculum Exam - Vagina: normal appearance of the vagina, normal palpation, normal vaginal discharge and not erythematous Speculum Exam - Cervix: normal appearance of the cervix and normal palpation Bimanual exam- vagina & uterus: normal bimanual exam, normal palpation, uterine size normal, bladder normal to palpation, consistency normal and normal palpati on Bimanual Exam- Adnexa, other: normal adnexae, no masses and no tenderness Assessment & Plan Assessment & Plan (1) Abnormal uterine bleeding: Code(s): N93.9 - Abnormal uterine and vaginal bleeding, unspecified Category: Medical Plan: Co testing done, GC and chlamydia taken CBC, TSH, HCG, and pelvic ultrasound ordered. Discussed with the patient the different causes of abnormal bleeding including thyroid disorders, uterine and ovarian pathology, endometrial hyperplasia, carcinoma and other potential causes. Discussed with the patient the work up including CBC (to r/o anemia), TSH, prolactin, pelvic Ultrasound, endometrial biopsy to r/o endometrial pathology. All questions answered and the patient verbalized understanding. Instructed the patient to schedule an appointment for an endometrial biopsy in 2 weeks. Orders: Orders TSH reflex Free T4 Today N93.9 - Abnormal uterine and vaginal bleeding, unspecified Complete Blood Count no Diff Today N93.9 - Abnormal uterine and vaginal bleeding, unspecified US pelvic and transvaginal Today N93.9 - Abnormal uterine and vaginal bleeding, unspecified HCG Quantitative Today N93.9 - Abnormal uterine and vaginal bleeding, unspecified Coding Level of Care Code Est Pt Level 3 (47421) Diagnoses Abnormal uterine bleeding N93.9
== END 2024-09-08 15:02 | disposition home or self-care (01) ==
PROVIDERS: PCP Student in an Organized Health Care Education/Training Program; Visit Provider Obstetrics & Gynecology
DX: Z32.02 Encounter for pregnancy test, result negative (principal); N93.9 Abnormal uterine and vaginal bleeding, unspecified
CPT/HCPCS: 99213

== ENCOUNTER 2024-09-08 14:28 | Outpatient (REF) | payer MEDICAID, SELFPAY ==
[2024-09-08 15:43] LABS: Hematocrit 36.1 % (37.0-47.0); Hemoglobin 11.3 g/dl (12.0-16.0); Mean Corpuscular HGB Conc 31.3 g/dl (31.0-35.0); Mean Corpuscular Hemoglobin 25.2 pg (27.0-33.0); Mean Corpuscular Volume 80.6 fL (80.0-98.0); Mean Platelet Volume 10.5 fL (9.4-12.3); Platelet Count 249 X10*3/uL (160-400); Red Blood Count 4.48 X10*6/uL (4.20-5.50); Red Cell Distribution Width 14.7 % (11.0-16.0); White Blood Count 7.8 X10*3/uL (4.8-10.8)
[2024-09-08 17:04] LABS: HCG Quantitative < 2 mIU/mL; TSH reflex Free T4 0.94 uIU/mL (0.32-4.0)
[2024-09-09 03:31] LABS: CT PCR NOT DETECTED (Not Detect.); NG PCR NOT DETECTED (Not Detect.)
== END 2024-09-08 14:29 | disposition home or self-care (01) ==
LOC: HO.LAB 14:28
PROVIDERS: PCP Student in an Organized Health Care Education/Training Program; Visit Provider Obstetrics & Gynecology
DX: N87.0 Mild cervical dysplasia (principal); N93.9 Abnormal uterine and vaginal bleeding, unspecified
CPT/HCPCS: 81025; 84443; 84702; 85027; 87491; 87591; 99212

== ENCOUNTER 2024-09-08 14:55 | Outpatient (REF) | payer MEDICAID, SELFPAY ==
[2024-09-09 10:45] LABS: HPV 16,18/45 See PAP report
== END 2024-09-08 14:56 | disposition home or self-care (01) ==
LOC: HO.LNP 14:55
PROVIDERS: Visit Provider Obstetrics & Gynecology
DX: N87.0 Mild cervical dysplasia (principal); N93.9 Abnormal uterine and vaginal bleeding, unspecified
CPT/HCPCS: 87624; 88175

== ENCOUNTER 2024-09-27 11:26 | Outpatient (REF) | payer MEDICAID, SELFPAY ==
--- NOTE | ~2024-09-27 | US_ITS ---
CLINICAL HISTORY: N93.9 - Abnormal uterine and vaginal bleeding, unspecified Transabdominal and transvaginal pelvic ultrasound Bilateral ovarian Doppler studies Comparison: None Findings: Uterus 7.7 x 4.8 x 5.0 cm. Endometrium 1.4 cm. 3 small uterine fibroids are identified. Largest measures 1.7 x 1.2 cm. Myometrium is heterogeneous throughout. Minimal free fluid cul-de-sac and right adnexa. Right ovary 2.8 x 3.0 x 1.4 cm. Left ovary 3.2 x 2.2 x 1.8 cm. No significant focal abnormality. Impression: Small uterine fibroids Otherwise unremarkable This document has been electronically signed by: John Flowers MD on 09/29/2024 00:03:57
== END 2024-09-27 11:27 | disposition home or self-care (01) ==
LOC: HO.US 11:26
PROVIDERS: PCP Student in an Organized Health Care Education/Training Program; Visit Provider Obstetrics & Gynecology
DX: N93.9 Abnormal uterine and vaginal bleeding, unspecified (principal)
CPT/HCPCS: 76830; 76856

== ENCOUNTER → 2024-09-27 11:29 | Outpatient (BNV) | payer MEDICAID, SELFPAY | PROVIDERS: PCP Student in an Organized Health Care Education/Training Program; Visit Provider Radiology Diagnostic Radiology | DX: N93.9 Abnormal uterine and vaginal bleeding, unspecified (principal) | CPT/HCPCS: 76830; 76856 ==

== ENCOUNTER 2024-09-30 13:33 | Emergency (ER) | payer MEDICAID, SELFPAY ==
--- NOTE | ~2024-09-30 | CT_ITS ---
EXAMINATION: CT HEAD WITHOUT IV CONTRAST HISTORY: R posterior H/A, foot numb, atypical from migraine. TECHNIQUE: Unenhanced helical CT of the head was performed per standard departmental protocol. Coronal and sagittal reformats of the head were also evaluated. One or more of the following techniques was used for dose reduction: Automated exposure control, adjustment of the mA and/or kV according to patient size, use of iterative reconstruction technique. DLP: 627 mGy-cm COMPARISON: There are no prior studies for comparison. FINDINGS: BRAIN: The brain parenchyma is unremarkable. There is normal ruano/white differentiation. The ventricular system is normal in size and configuration. There is no mass effect or midline shift. No intra- or extra-axial fluid collections are identified. SINUSES: The visualized paranasal sinuses are clear. The mastoid air cells and middle ear cavities are well pneumatized. ORBITS: The visualized orbits are unremarkable. BONES/SOFT TISSUES: The extracranial soft tissues are unremarkable. The calvarium is intact. No suspicious lytic or sclerotic lesions. CT/CT head/brain wo IV con IMPRESSION: Unremarkable unenhanced head CT. Electronically signed by: Nate Carolina MD 09/30/2024 03:24 PM [facility] [place], [place]
--- NOTE | 2024-09-30 14:05 | ED.HA ---
HPI - Headache General Chief Complaint: Headache Stated Complaint: headache rad down neck, L leg numbness Related Data Home Medications ?Medication ?Instructions ?Recorded ?Confirmed acetaminophen 500 mg tablet 1 tab PO Q8H PRN Pain 11/28/20 03/11/23 albuterol sulfate 90 mcg/actuation 2 puff PO Q4-6H PRN Shortness Of 11/28/20 03/11/23 aerosol inhaler (ProAir HFA) Breath Or Wheezing zulkjkdyfi-dfaaqiidsgobz-spwkrbwg 1 cap PO NEEDED PRN Headache 11/28/20 03/11/23 50 mg-325 mg-40 mg capsule ondansetron HCl 4 mg tablet 1 tab PO BID PRN nausea 02/19/22 03/11/23 Previous Rx's ?Medication ?Instructions ?Recorded meclizine 25 mg tablet 25 mg PO TID PRN Dizziness Or 12/14/20 Vertigo #30 tabs cyclobenzaprine 10 mg tablet 10 mg PO TID PRN muscle spasm #14 03/12/22 tabs ibuprofen 600 mg tablet 600 mg PO Q6H PRN pain #30 tabs 03/12/22 tranexamic acid 650 mg tablet 1,300 mg (2 x 650 mg) PO TID 5 08/03/24 days #30 tabs Allergies Allergy/AdvReac Type Severity Reaction Status Date / Time Seasonal Allergies Allergy Severe Sneezing Verified 09/30/24 14:08 [facility] Past Medical History Medical History Dysplasia of cervix, low grade (BENNIE 1) Right knee meniscal tear Asthma Anemia Migraines Surgical History History of knee surgery History of carpal tunnel surgery of right wrist History of tubal ligation Family History Family History Unknown No problems noted. Mother HTN (hypertension) Maternal Aunt Diabetes Mother Murmur Asthma Migraines Social History Social History Household Members: Children [facility] Are you a primary home care scheduler to a significant other at home: Yes Do you presently have visiting nurse or other home services: No Alcohol intake: current Alcohol intake frequency: holidays/special occasions only Patient Tobacco Use Status: Former Tobacco user Tobacco use type: Cigarette Advance Directives: No Advance Directives Information Provided: No service: No Current occupational status: employed 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 Patient is a 39-year-old female presenting to the emergency department for evaluation. Endorses sudden onset severe Stabbing sharp pain to the right posterior head with occasional radiation to the right lateral neck, in addition to left foot numbness. Bilateral hand numbness Advised by PCP to come to the emergency department. Reports onset was 3 days ago, has been constant in nature, without any trauma or injury. Admits to a history of migraine headaches, but states she has only ever experienced frontal migraines and this feels vastly different Plan: Given change from her baseline will obtain CT of the head to exclude acute intracranial pathology, in addition to serum labs, viral serologies, urinalysis and hCG Reevaluation(s) Reevaluation #1: LWCT Medical Decision Making Lab Data 09/30/24 14:54 09/30/24 14:54 Labs: Lab Results 09/30/24 Range/Units 14:54 WBC 7.7 (4.8-10.8) X10*3/uL RBC 4.70 (4.20-5.50) X10*6/uL Hgb 11.9 L (12.0-16.0) g/dl Hct 37.5 (37.0-47.0) % MCV 79.8 L (80.0-98.0) fL MCH 25.3 L (27.0-33.0) pg MCHC 31.7 (31.0-35.0) g/dl RDW 14.8 (11.0-16.0) % Plt Count 247 (160-400) X10*3/uL MPV 10.2 (9.4-12.3) fL Immature Gran % (Auto) 0.3 (0.0-0.4) % Neut % (Auto) 68.7 (45-73) % Lymph % (Auto) 23.6 (20-40) % Reagan % (Auto) 5.6 (2-11) % Eos % (Auto) 1.0 (0-4) % Baso % (Auto) 0.8 (0-2) % Lymph # (Auto) 1.8 (1.2-4.9) X10*3/uL Reagan # (Auto) 0.4 (0.1-1.2) X10*3/uL Eos # (Auto) 0.1 (0.0-0.4) X10*3/uL Baso # (Auto) 0.1 (0.0-0.2) X10*3/uL Abs Immat Gran (auto) 0.02 (0.00-0.03) X10*3/uL Absolute Neuts (auto) 5.3 (2.0-8.3) x10*3/uL Absolute Nucleated RBC 0.000 (0.0-0.012) X10*3/uL Nucleated RBC % (auto) 0.0 (0.0-0.2) /100WBC PT 11.5 (10.9-12.4) SEC INR 1.0 (0.9-1.1) Sodium 140 (135-145) mmol/L Potassium 3.8 (3.3-5.1) mmol/L Chloride 107 (96-108) mmol/L Carbon Dioxide 27 (22-29) mmol/L Anion Gap 10 L (12-20) BUN 14 (9-16) mg/dL Creatinine 0.78 (0.5-1.4) mg/dL Estim Creat Clear Calc 97.2 Estimated GFR > 60 Random Glucose 101 (60-115) mg/dL Calcium 9.0 (8.4-10.2) mg/dL Magnesium 2.1 (1.6-2.6) mg/dL Total Bilirubin 0.3 (0.0-1.0) mg/dL AST 22 (5-31) U/L ALT 22 (0-31) U/L Alkaline Phosphatase 62 (39-117) U/L Total Protein 7.4 (6.5-8.0) g/dL Albumin 4.0 (3.5-5.0) g/dL Beta HCG, Quant < 2 mIU/mL Influenza Type A (PCR) NEGATIVE (Negative) Influenza Type B (PCR) NEGATIVE (Negative) RSV RNA Qual (PCR) NEGATIVE (Negative) SARS-CoV-2 RNA (RT-PCR) NEGATIVE (Negative) Discharge Plan Discharge Clinical Impression: Headache Patient Disposition: Left W/O Completing Treatment Prescriptions: No Action tranexamic acid 650 mg tablet 1,300 mg PO TID 5 Days Qty: 30 3RF eutaxmozbh-phdfavdhdnaya-kvhy 50-325-40 mg capsule 1 cap PO NEEDED PRN (Reason: Headache) acetaminophen 500 mg tablet 1 tab PO Q8H PRN (Reason: Pain) albuterol sulfate [ProAir HFA] 90 mcg/actuation HFA aerosol inhaler 2 puff PO Q4-6H PRN (Reason: Shortness Of Breath Or Wheezing) ondansetron HCl 4 mg tablet 1 tab PO BID PRN (Reason: nausea) meclizine 25 mg Tablet 25 mg PO TID PRN (Reason: Dizziness Or Vertigo) Qty: 30 3RF cyclobenzaprine 10 mg tablet 10 mg PO TID PRN (Reason: muscle spasm) Qty: 14 0RF ibuprofen 600 mg tablet 600 mg PO Q6H PRN (Reason: pain) Qty: 30 0RF Discharge Date/Time: 09/30/24 19:42
[2024-09-30 14:06] VITALS: BP 106/77; PULSE 75; RESP 16; TEMP 37; O2SAT 98; BMI 33.9
[2024-09-30 15:00] LABS: MANUAL DIFF FLAG NO
[2024-09-30 15:04] LABS: Basophils Absolute Auto 0.1 X10*3/uL (0.0-0.2); Basophils Percent Auto 0.8 % (0-2); Eosinophils Absolute Auto 0.1 X10*3/uL (0.0-0.4); Hematocrit 37.5 % (37.0-47.0); Hemoglobin 11.9 g/dl (12.0-16.0); Imm Gran Abs Auto 0.02 X10*3/uL (0.00-0.03); Imm Gran Pct Auto 0.3 % (0.0-0.4); Lymphocytes Absolute Auto 1.8 X10*3/uL (1.2-4.9); Lymphocytes Percent Auto 23.6 % (20-40); Mean Corpuscular HGB Conc 31.7 g/dl (31.0-35.0); Mean Corpuscular Hemoglobin 25.3 pg (27.0-33.0); Mean Corpuscular Volume 79.8 fL (80.0-98.0); Mean Platelet Volume 10.2 fL (9.4-12.3); Monocytes Absolute Auto 0.4 X10*3/uL (0.1-1.2); Monocytes Percent Auto 5.6 % (2-11); Neutrophils Absolute Auto 5.3 x10*3/uL (2.0-8.3); Neutrophils Percent Auto 68.7 % (45-73); Platelet Count 247 X10*3/uL (160-400); Red Cell Distribution Width 14.8 % (11.0-16.0); White Blood Count 7.7 X10*3/uL (4.8-10.8)
[2024-09-30 15:09] LABS: Prothrombin Time 11.5 SEC (10.9-12.4)
[2024-09-30 15:24] LABS: Alanine Aminotransferase 22 U/L (0-31); Anion Gap 10 (12-20); Aspartate Amino Transferase 22 U/L (5-31); Bilirubin Total 0.3 mg/dL (0.0-1.0); Blood Urea Nitrogen 14 mg/dL (9-16); Carbon Dioxide 27 mmol/L (22-29); Chloride 107 mmol/L (96-108); Creatinine Clr Calc Pharmacy 97.2; Estimated Glomerular Filt Rate > 60; Glucose Random 101 mg/dL (60-115); HCG Quantitative < 2 mIU/mL; Magnesium 2.1 mg/dL (1.6-2.6); Potassium 3.8 mmol/L (3.3-5.1); Sodium 140 mmol/L (135-145); Total Protein 7.4 g/dL (6.5-8.0)
[2024-09-30 15:38] LABS: Influenza A PCR NEGATIVE (Negative); Influenza B PCR NEGATIVE (Negative); Resp Syncy Virus RNA Qual PCR NEGATIVE (Negative); SARS COV2 PCR INHOUSE NEGATIVE (Negative)
[2024-09-30 15:55] LABS: Alkaline Phosphatase 62 U/L (39-117)
== END 2024-09-30 19:42 | disposition left against medical advice (07) ==
PROVIDERS: Nurse Practitioner Family; Emergency Provider Emergency Medicine; PCP Student in an Organized Health Care Education/Training Program
DX: R51.9 Headache, unspecified (principal); R20.0 Anesthesia of skin; Z03.818 Encounter for observation for suspected exposure to other biological agents ruled out
CPT/HCPCS: 0241U; 70450; 80053; 83735; 84702; 85025; 85610; 99281

== ENCOUNTER → 2024-09-30 14:08 | Outpatient (BNV) | payer MEDICAID, SELFPAY | PROVIDERS: PCP Student in an Organized Health Care Education/Training Program; Visit Provider Radiology Diagnostic Radiology | DX: R51.9 Headache, unspecified (principal) | CPT/HCPCS: 70450 ==

== ENCOUNTER 2024-12-15 09:15 | Outpatient (RCR) | payer MEDICAID, SELFPAY ==
[2024-11-24 08:56] VITALS: BP 122/53; PULSE 72; RESP 18; TEMP 36.3
[2024-11-24] MEDS: Iron Sucrose Complex 200 MG/10 ML VIAL IVPUSH (09:12)
[2024-11-24] MEDS: diphenhydrAMINE HCL 25 MG CAPSULE PO (09:17)
[2024-12-01 08:52] VITALS: BP 110/60; PULSE 74; RESP 18; TEMP 36.5
[2024-12-01] MEDS: Iron Sucrose Complex 200 MG 440 MG IV (08:59)
[2024-12-08 08:57] VITALS: BP 124/64; PULSE 64; RESP 16; TEMP 36.2; O2SAT 100
[2024-12-08] MEDS: Iron Sucrose Complex 200 MG 440 MG IV (09:05)
[2024-12-15 09:28] VITALS: BP 101/74; PULSE 72; RESP 18; TEMP 36.4; O2SAT 100
[2024-12-15] MEDS: Iron Sucrose Complex 200 MG 440 MG IV (09:39)
== END 2024-12-15 15:12 | disposition home or self-care (01) ==
LOC: HO.INF 09:15
PROVIDERS: Visit Provider Internal Medicine
DX: D64.9 Anemia, unspecified (principal)
CPT/HCPCS: 96365; 96374; J1756

== ENCOUNTER 2025-02-28 10:24 | Outpatient (REF) | payer MEDICAID, SELFPAY ==
--- OUTSIDE RECORDS SUMMARY | 2025-02-28 12:05 | XMS_ITS | Encounter Summary ---
Author Organization [employer] Address [address] [place] [address] 7 [place] [address] Care Team Providers Care Urologist Name Role Phone Jo Higuera MD Primary Care Provider [phone] Reason for Visit * Reason Onset Date Comments Nurse Triage 06/20/2024 Encounter Details Date Type Department Care Team ([facility] st Contact Info) Description 06/20/2024 Telephone [facility] [address] [place] [address] Jo Higuera MD [address] [place] [address] Nurse Triage Social History Tobacco Use Types Packs/Day Years Used Date Smoking Tobacco: Never Passive Smoke Exposure: Never Smokeless Tobacco: Never Alcohol Use Standard Drinks/Week Comments Never 0 (1 standard drink = 0.6 oz pur e alcohol) Depression Answer Date Recorded Patient Health Questionnaire-9 Score 0 01/29/2023 Housing Stability Answer Date Recorded What is your housing situation today? I have yosi carrington 07/27/[address] you li ve. Do you have problems with any of the following? None of the above 07/27/2023 Food Insecurity Answer Date Recorded Within the past 12 months, y ou worried that your food would run out before you got money to buy more: Never True 07/27/2023 Within the past 12 months,th e food you bought just didn't last and you didn't have enough money to get more: Never True 02/2023 Transportation Answer Date Recorded In the past 12 months, has l ack of transportation kept you from medical appts, meetings, work or from getting things needed for daily living? No 07/27/2023 Utilities Answer Date Recorded In the past 12 months, has t he electric, gas, oil or water company threatened to shut off services in your home? No 07/27/2023 Depression Answer Date Recorded Patient Health Questionnaire-2 Score 0 01/29/2023 Comments No Sex and Gender Information Value Date Recorded Sex Assigned at Female 07/21/2022 10:18 AM EDT Legal Sex Female 10:18 AM EDT Gender Identity Female 07/21/2022 10:18 AM EDT Sexual Orientation Straight 01/12/2023 4: 39 PM EDT documented as of this encounter Miscellaneous Notes * Telephone Encounter - Ariana Olmos RN - 06/20/2024 12:01 PM EDT Triage call Pt reports tonsils hurt. Pt was seen in [facility] 06/07/24 with dx of right otitis media , Pt was also seen 06/10/24 in [facility] dx of viral URI /cough. Pt calls today reports symptoms got better for a few days but, today, symptoms of cough, nasal congestion, ear ache and headache have returned and are worse. Pt reports tonsils are swollen due to constant coughing and nasal drip. Pt reports asthma is flaring as well and using pro air inhaler is not helping. Pt is advised to come to [facility] today for provider to see Pt . Pt agrees with disposition and is already implementing home care. Insurance is verified as active. Protocol Used: Cough (Adult) Protocol-Based Disposition: See in Office or Video Visit Today or Tomorrow Video visit not offered Positive Triage Question: * Patient wants to be seen * All higher-acuity triage questions were negative Care Advice Discussed: * Reassurance and Education - Cough * Cough Medicines * Coughing Spells * Prevent Dehydration * Humidifier * Reasons To Call Back - Difficulty breathing - Cough lasts more than 3 weeks - Fever lasts more than 3 days - You become worse * Telephone Encounter - Mel Samano - 06/20/2024 11:19 AM EDT Symptom: Cough and asthma pump does not seem to be helping Outcome: Schedule an appointment to be seen within 24 hours Reason: Caller denied all higher acuity questions The caller accepted this outcome. documented in this encounter Plan of Treatment Not on file documented as of this encounter Visit Diagnoses Not on filedocumented in this encounter Additional Health Concerns Assessment Noted Time PHQ-9 Depression Total Score: 0 01/30/20 23 4:06 PM EDT documented as of this encounter Care Teams Urologist Relationship Specialty Start Date End Date Jo Higuera MD [address] [place] [id number] PCP - General Family Medicine 09/21/18 documented as of this encounter
[2025-02-28 14:57] LABS: TSH reflex Free T4 0.88 uIU/mL (0.32-4.0)
[2025-03-01 04:28] LABS: Triiodothyronine T3 Total 106 ng/dL (76-181)
[2025-03-03 22:49] LABS: Thyrotropin Receptor Antibody <1.00 IU/L (<=2.00)
== END 2025-02-28 10:25 | disposition home or self-care (01) ==
LOC: HO.CHCLDS 10:24
PROVIDERS: Visit Provider Internal Medicine
DX: K59.09 Other constipation (principal); H05.20 Unspecified exophthalmos
CPT/HCPCS: 36415; 83520; 84443; 84480

== ENCOUNTER 2025-04-26 16:03 | Outpatient (REF) | payer MEDICAID, SELFPAY ==
--- NOTE | ~2025-04-26 | XR_ITS ---
EXAMINATION: XR HIP 2 OR MORE VIEWS LEFT HISTORY: left hip pain COMPARISON: There are no prior studies available for comparison. FINDINGS: Two views of the left hip are submitted. Osseous mineralization is normal. There is no fracture or dislocation. There is moderate osteoarthritis with joint space narrowing and osteophyte formation. The soft tissues are unremarkable. XR/XR hip LT min 2V IMPRESSION: Moderate osteoarthritis. Electronically signed by: Nate Carolina MD 04/27/2025 07:34 AM EDT
--- OUTSIDE RECORDS SUMMARY | 2025-04-26 16:23 | XMS_ITS | Encounter Summary ---
Author Organization [employer] Address [address] [place] [address] [address] [place] [address] Care Team Providers Care Drug Safety Associate Name Role Phone Jo Higuera MD Primary Care Provider [phone] Reason for Visit * Reason Onset Date Comments Nurse Triage 06/20/2024 Encounter Details Date Type Department Care Team ([facility] st Contact Info) Description 06/20/2024 Telephone [facility] [address] [place] [address] Jo Higuera MD [address] [place] [address] Nurse Triage Social History Tobacco Use Types [...] reports tonsils hurt. Pt was seen in [facility] 06/07/24 with dx of right otitis media , Pt was also seen 06/10/[address] [facility] dx of viral URI /cough. Pt calls [...] helping. Pt is advised to come to [facility] today for provider to see Pt . [...] You become worse * Telephone Encounter - Mle Samano - 06/20/2024 11:19 AM EDT Symptom: [...] documented as of this encounter Care Teams Drug Safety Associate Relationship Specialty Start Date End Date Jo Higuera MD [address] [place] [id number] PCP - General Family Medicine 09/21/18 documented as of this encounter
--- OUTSIDE RECORDS SUMMARY | 2025-04-26 16:23 | XMS_ITS | Clinical Summary ---
Author Organization [facility] [email or web address] [facility] Address [address] [place] [address] Care Team Providers Care Statement Processor Name Role Phone Pcp, No Primary Care Provider [phone] Social History Tobacco Use Types Packs/Day Years Used Date Smoking Tobacco: Never Assessed Comments Unknown Sex and Gender Information Value Date Recorded Sex Assigned at Not on file Legal Sex Female 12:44 AM EDT Gender Identity Not on file Sexual Orientation Not on file Plan of Treatment Health Maintenance Due Date Last Done Comments Depression: Screening Annual ly using PHQ-2/9 in Adults 18 yrs or above (or HM Modifier)([facility]) 2003 Hepatitis C Virus Infection in Adolescents and Adults: Screening (or Modifier) ([facility]) 2003 SDAL Screening Reminder: Patricia lai for all adults ([facility]) 2003 Tobacco Smoking Cessation: i n Adults excluding Women: Behavioral and Pharmacotherapy Interventions ([facility]) 2003 DTaP/Tdap/Td Vaccines ([facility]) (1 - Tdap) 02/05/2004 Cervical Cancer Screenin 1-65 yrs of age (or Modifier) 2006 Cervical Cancer Screening: P ap every 3 yrs pts age 21-65 2006 Cervical Cancer: Pap Screeni ng with Modifier timing ([facility]) 2006 Cervical Cancer: hrHPV alone or with cotesting Pap for Pts 30-65yrs screening every 5yrs ([facility]) 2006 COVID-19 Vaccine Screening: Initial Series and Booster Status ([facility]) ( - 2023- season) 2024 Flu Vaccination: Yearly for ages 18mos through 64 years (or Modifier)([facility]) 04/21/2025 Zoster/Shingles Vaccine Seri es Screening: Adults aged 18+ yrs (or HM Modifiers)([facility]) (1 of 2) 2035 Pneumococcal Vaccination Scr eening: Pts 0-19 & 19-49 yrs of age ([facility]) Aged Out No longer eligible based on patient's age to complete this topic Medical Devices Not on file Insurance MARIA GUADALUPE sosa [id number] [facility] Care Teams Statement Processor Relationship Specialty Start Date End Date Pcp, Marilia PCP - General Family Medicine 02/13/22
--- OUTSIDE RECORDS SUMMARY | 2025-04-26 16:23 | XMS_ITS | Patient Health Record ---
Author Organization [facility] Address [address] [place] [id number] Care Team Providers Care Python Programmer Name Role Phone VARGAS KENNEDY Primary Care Provider Noé Fragoso Jr Unavailable Allergies Allergen (clinical drug ingredient) Drug/Non Drug Allergy documented on EMR Reaction Allergy Type Onset Date Status seasonal (uncoded) Unknown Allergy A ctive Reason For Referral No Information Medications Medication SIG (Take, Route, Frequency, Duration) Notes Start Date End Date Status Ondansetron HCl 4 MG Oral for 6 Days Active Topiramate 50 MG TAKE 1 TABLET BY MAYE TH IN THE MORNING Oral for 90 Days Active SUMAtriptan Succinate 50 MG TAKE 1 TABLE T BY MOUTH NEEDED FOR MIGRAINE FOR UP TO 9 DOSES. MAY REPEAT DOSE ONCE IN 2 HOURS IF NO RELIEF. DO NOT EXCEED 2 DOSES IN 24 HOURS Oral for 30 Days Active NexIUM 40 MG 1 capsule Orally Onc e a day for 90 days 07/29/2023 Active Dicyclomine HCl 20 MG 1 tablet Orally 2- 4 times a day 03/16/2024 Active Ventolin HFA 108 (90 Base) MCG/ACT 1 puff as needed Inhalation every 4 hrs Active Albuterol Sulfate HFA 108 (90 Base) MCG/ACT 1 puff as needed Inhalation every 4 hrs Active Tranexamic Acid 650 MG TAKE 2 TABLETS BY MOUTH THREE TIMES DAILY FOR 5 DAYS Oral for 5 Days Active Immunizations Vaccine Route Administration Date Status Comme nts Influenza Unknown 02/19/2023 Administered Influenza Unknown 03/05/2023 Refused Influenza Unknown 03/16/2024 Refused Social History Tobacco Use: Social History Observation Description Date Details (start date - stop date) Never Smoker NA - NA Tobacco Use/Smoking Question Answer Notes Patient is a nonsmoker Alcohol Screen Question Answer Notes Did you have a drink containing alcohol in the p ast year? No Points 0 Interpretation Negative Problems Problem Type SNOMED Code ICD Code Onset Dates Problem Status W/U Status Risk Notes Problem 63549828 Epigastric pain (R10.13) Active confirmed Problem 39722002 Duodenitis (K29.80) Active confirmed Problem 254780065 Abnormal celiac antibody panel (R89.4) Active confirmed Problem 668275354 Fatty liver (K76.0) Active confirmed Plan Of Treatment Pending Test Test Name Order Date LIVER PROFILE 03/16/2024 LIVER PROFILE 07/29/2023 LIPASE 03/16/2024 LIPASE 07/29/2023 CBC w DIFF 03/16/2024 CBC w/o DIFF 07/29/2023 US ABD 07/29/2023 HIDA SCAN GB WITH CCK 03/16/2024 Future Test Test Name Order Date UPPER GI ENDOSCOPY 03/05/2023 Insurance Providers Payer Name Payer Address Payer Phone Subscriber Number Group Number Insured Name Patient Relationship to Insured Coverage Start Date Coverage End Date [facility] [place] [facility] [address] [place] [phone] [id number] NATA GRACIA Self - patient is the insured Medical (General) History Medical History History ICD Code Asthma Migraines Cervical dysplasia EGD 03/13, duodenitis, negati ve for celiac disease, no H. pylori or Torres's esophagus Surgical History Surgery Date(Month/Year) Tubal ligation 2014 cyst removal carpel tunnel 2019 right knee 2020
== END 2025-04-26 16:04 | disposition home or self-care (01) ==
LOC: HO.XRAY 16:03
PROVIDERS: PCP Student in an Organized Health Care Education/Training Program; Visit Provider Internal Medicine
DX: M25.552 Pain in left hip (principal)
CPT/HCPCS: 73502

== ENCOUNTER → 2025-04-26 16:06 | Outpatient (BNV) | payer MEDICAID, SELFPAY | PROVIDERS: PCP Student in an Organized Health Care Education/Training Program; Visit Provider Radiology Diagnostic Radiology | DX: M16.12 Unilateral primary osteoarthritis, left hip (principal) | CPT/HCPCS: 73502 ==